=== PATIENT | male | born 1990 | race Caucasian/White ===

== ENCOUNTER 2019-09-28 11:56 | Emergency (ER) | payer MEDICAID, SELFPAY ==
[2019-09-28 11:57] VITALS: BP 120/71; PULSE 97; RESP 16; TEMP 36.8; O2SAT 100; BMI 24.3
[2019-09-28] MEDS: 0.9% Normal Saline 1,000 ML 125 ML IV (12:28)
[2019-09-28] MEDS: Ondansetron 4 MG/2 ML Vial IV ×3 (12:29→19:22)
[2019-09-28 12:36] LABS: Absolute Lymphocyte Count 3.56 X10^3/uL (0.83-4.51); Absolute Neutrophil Count 3.5 X10^3/uL (2.0-7.7); Basophil# 0.06 X10^3/uL; Basophil% 0.7 % (0-1); Eosinophil# 0.14 X10^3/uL; Eosinophils% 1.7 % (0-5); Hematocrit 45.9 % (40-54); Hemoglobin 15.7 g/dL (13.0-16.5); Lymphocyte # 3.56 X10^3/ul (4.0); Lymphocyte % 44.4 % (19-41); Mean Corp Hgb Conc 34.2 g/dL (32-36); Mean Corpuscular Hgb 30.4 pg (27.0-32.0); Mean Platelet Vol. 10.2 fl (6.2-12.0); Monocyte# 0.69 X10^3/uL; Monocyte% 8.6 % (0-10); NRBC Flagged by Analyzer 0 % (0-5); Neutrophil # 3.54 X10^3/uL (2.7-7.7); Neutrophil % 44.2 % (47-70); POSITIVE MORPHOLOGY YES; Platelet Count 364 K/mm3 (150-450); RBC Distribution Width CV 14.6 % (11.6-14.6); RBC Distribution Width SD 47.4 fl (35.1-43.9); Red Blood Count 5.16 M/mm3 (4.6-6.2)
[2019-09-28 12:38] LABS: Differential Indicated SCAN CRITERIA MET
[2019-09-28 12:58] LABS: AST(SGOT) 890 U/L (15-37); Alanine Aminotransfer ALT/SGPT 3083 U/L (16-61); Albumin, Serum 3.2 g/dL (3.2-5.0); Alkaline Phosphatase 323 U/L (45-117); Anion Gap 5 (5-15); BUN 5 mg/dL (7-18); Calcium,Total 9.1 mg/dL (8.5-10.1); Chloride 103 mmol/L (98-107); Creatinine, Serum 0.72 mg/dL (0.70-1.30); EST Glomerular Filtration Rate 135 mL/min (>60); Est Glom Filt Rate - Afr Amer 164 mL/min (>60); Estimated Creatinine Clearance 153.49 ml/min; Globulin 4.1 g/dL (2.2-4.2); Glucose 92 mg/dL (74-106); Lipase 193 U/L (73-393); Potassium 3.7 mmol/L (3.5-5.1); Protein, Total 7.3 g/dL (6.4-8.2); Sodium Level 140 mmol/L (136-145)
[2019-09-28 13:18] LABS: Color, Urine Amber (Yellow); Glucose, Dipstick Normal (Normal); Ketone-Dipstick 5 mg/dl (Negative); Leukocyte Esterase-Dipstick 25 /ul (Negative); Nitrite-Dipstick Negative (Negative); Occult Blood-Urine 10 /ul (Negative); Protein-Dipstick 15 mg/dl (Negative); Urine Clarity Sl. Cloudy (Clear); Urine Urobilinogen 8 mg/dl (Normal)
[2019-09-28 13:20] LABS: Urine Bilirubin Dipstick 6 mg/dL (Negative)
[2019-09-28 13:27] LABS: Bacteria 1+ /hpf (None Seen); Mucous, Urine 1+ /hpf (<or=2+); Red Blood Cells-Urine 0-5 SEEN /hpf (0-5); Squamous Epithelial Cells - UA 0-5 SEEN /hpf (0-5); White Blood Cells 0-5 SEEN /hpf (0-5)
[2019-09-28 13:33] LABS: Reactive Lymphocyte 1+
[2019-09-28 14:00] VITALS: BP 128/84; PULSE 88; RESP 22; O2SAT 100
[2019-09-28] MEDS: DiphenhydrAMINE 50 MG/ML Syringe 25 MG IV (14:08)
[2019-09-28] MEDS: LORazepam 2 MG/ML Syringe 1 MG IV (14:08)
[2019-09-28 14:19] LABS: Prothrombin Time (Protime)PT. 12.6 SECONDS (11.7-14.9)
--- NOTE | 2019-09-28 14:57 | NURSING ---
[facility] IS FULL, BUT THEY ARE KEEPING LINES OF COMMUNICATION OPEN
--- NOTE | 2019-09-28 14:58 | NURSING ---
[facility] HAS FULL CENSUS, LONG WAIT FOR BED. DR OLVERA, MEDICINE, HAS CALLED. DR ROGEL CALLED BACK
--- NOTE | 2019-09-28 15:09 | NURSING ---
ACCEPTED AT [facility] BY DR ROGEL
--- NOTE | 2019-09-28 15:14 | ED.VISSUMM ---
- ER Visit Summary Date of Service: 09/28/19 Chief Complaint: [Jaundice and concern for hepatitis] History of Present Illness: The patient is a 29 M [resents to the emergency department with 4 to 5-day history of vomiting and diarrhea. Patient complains of some mild abdominal discomfort. Patient states that he has used IV drugs and has been using methamphetamines and opiates but discontinued using for 5 days ago. Patient noticed discoloration of the skin at that time as well. Patient otherwise has no medical history. He has complaints and pale stools. Patient has history of anxiety. No prior surgical history.] Physical Examination: [HEENT-PERRLA, EOMI. Cranial nerves II through XII grossly intact. TMs clear. Mucous membranes moist. No adenopathy. Patient has scleral icterus noted Cardiovascular-regular rate and rhythm without murmur or ectopy Lungs-clear to auscultation, chest wall stable without crepitus or subcu emphysema Abdomen-normoactive bowel sounds, soft. Patient has some mild upper abdomen discomfort on exam. Liver feels slightly enlarged. There is no rebound, rigidity, or peritoneal signs. Extremities-intact ?4, normal range of motion, normal pulses, atraumatic] Test Results: [CBC with differential white count of 8.0, hemoglobin 15.7, hematocrit 46, platelets 364. Chemistries unremarkable. Total bilirubin was 9.7. Direct bilirubin was 7.5. Alk phos was 323, ALT 3083, AST was 890, lipase 193, INR 1.0. Ordered and pending. Urinalysis was unremarkable for infection however he was spilling bilirubin] Emergency Department Course and Treatment: [ Established and was given IV fluids. Patient was given Zofran as well as Ativan for his anxiety. Patient was given Benadryl for itching.] Treatment Plan: [Case discussed with hospitalist and she recommended transfer to a tertiary care center as we do not have GI or hepatology available. I discussed with patient that initially he wanted to go to [facility] in [place] however I was told they do not have beds and that their ER is also full. Patient in agreement with transfer to [facility]. I spoke with Dr. Brown at the [facility] who is a vocational rehabilitation counselor and accepted transfer patient.] Disposition: [Transfer to [facility]] Impression: [Acute hepatitis] This note was generated with howsimple dictation software. It may contain incorrect words, spelling, and punctuation that were not noted in review of the chart prior to signing ED Disposition - Plan for ED Patient: Referrals: Miguel Umaña DO [Primary Care Provider] -
[2019-09-28 16:30] LABS: Amphetamine Urine VISTA POSITIVE (<1000 ng/mL); Barbiturate Urine VISTA NEGATIVE (< 200 ng/mL); Benzodiazepine Urine VISTA NEGATIVE (< 200 ng/mL); Cocaine Urine VISTA NEGATIVE (< 300 ng/mL); Ecstacy Urine VISTA NEGATIVE (< 500 ng/mL); Methadone Urine VISTA NEGATIVE (< 300 ng/mL); PCP Urine VISTA NEGATIVE (< 25 ng/mL); THC Urine VISTA POSITIVE (< 50 ng/mL); Vista UDS pH Range 6
--- NOTE | 2019-09-28 17:55 | NURSING ---
[facility] MAIN G100 BED 19 NURSE TO NURSE [phone]
[2019-09-28 18:00] VITALS: BP 125/80; PULSE 77; RESP 16; O2SAT 98
--- NOTE | 2019-09-28 19:24 | ED.RN ---
ATTEMPTED TO SECURE TRANSPORT FROM SEVERAL TRANSPORT COMPANIES, MANY HAVE DECLINED TO TRANSPORT DUE TO NO INSURANCE. CALLED [facility] CONTRACTED TRANSPORT COMPANY, [facility], WHO ALSO DECLINED DUE TO NO INSURANCE.
--- NOTE | 2019-09-28 19:45 | CM.ED ---
SOCIAL WORK INFORMANT: HIDE DROPPER, NURSING REASON FOR REFERRAL: SELF-PAY/TRANSPORTATION ISSUES PATIENT TO BE TRANSFERRED TO [facility]. PATIENT DOES NOT HAVE INSURANCE, STAFF HAVING ISSUES ARRANGING TRANSPORTATION. CHARGE NURSE DISCUSSED CASE WITH ED DIRECTOR. THIS WORKER MET WITH PATIENT IN ROOM. INTRODUCED ROLE AND REASON FOR REFERRAL. PATIENT GIVEN INFORMATION ON MEDICAID AND DISCUSSED ELIGIBILITY. PATIENT'S MOTHER TO ROOM. ALL QUESTIONS ANSWERED. ENCOURAGED FOLLOW UP WITH [place] [employer]/MEDICAID TOMORROW MORNING. PLAN: TRANSFER TO [facility], TRANSPORTATION BEING ARRANGED. STONEY FLORES, NEW MEDIA STRATEGIST.
--- NOTE | 2019-09-28 20:14 | ED.RN ---
patient has been denied by all normal local transport companies at this time due to having no insurance. Spoke with social work and made aware of situation. Spoke wi registered nurse hh case manager who was approved transport via squad if they will allow be agreeable to accept further payment from [facility]. Spoke to Dr. Alfaro made aware. She will allow patient to be transported via private care if need by. Spoke with Patient updated about the plan. Patient aggress to a private car transport. Would like us to speak to about this prior to plan at this time
--- NOTE | 2019-09-28 20:28 | ED.RN ---
patient agrees to private car transport
[2019-09-28] MEDS: LORazepam 0.5 MG Tablet PO (20:36)
[2019-09-28 20:44] VITALS: BP 125/80; PULSE 72; RESP 18; TEMP 37; O2SAT 98
[2019-09-29 04:07] LABS: HEPATITIS B SURFACE AG Negative (Negative); Hepatitis B Core AB IgM Negative (Negative)
[2019-09-29 12:52] LABS: Hep C Antibodies 0.1 s/co ratio (0.0-0.9)
[2019-09-29 12:55] LABS: Hepatitis A IgM Antibody Positive (Negative)
== END 2019-09-28 20:45 | disposition short-term general hospital (02) ==
LOC: ED 12:35
PROVIDERS: Emergency Provider Emergency Medicine; Family Provider Preventive Medicine Occupational Medicine; PCP Preventive Medicine Occupational Medicine
DX: B17.9 Acute viral hepatitis, unspecified (principal); R10.9 Unspecified abdominal pain; R11.2 Nausea with vomiting, unspecified; R19.7 Diarrhea, unspecified; Z72.0 Tobacco use
CPT/HCPCS: 80048; 80074; 80076; 80307; 81001; 83690; 85025; 85610; 96361; 96374; 96375; 96376; 99285; J7030; A4216; J2405

== ENCOUNTER 2020-04-16 16:17 | Emergency (ER) | payer MEDICAID, SELFPAY ==
[2020-04-16 16:18] VITALS: BP 156/107; PULSE 101; RESP 24; TEMP 36.7; O2SAT 100; BMI 25.2
--- NOTE | 2020-04-16 16:22 | ED.VIS.GEN ---
History of Present Illness Chief Complaint: Overdose Informant: Patient Onset: Today Context: Sudden Onset Quality: unconscious Current Severity: - - resolved Maximum Severity: Severe Worsened by: after overdosing IV drugs Relieved by: Narcan 4mg inhaled by EMS Associated Symptoms: denies. feels back to normal now. Narrative: Patient states he apparently accidentally overdosed. States he knowingly injected IV methamphetamine and fentanyl into his left antecubital fossa, someone called EMS and they gave him 2 A of Narcan up the nose, and he woke up. Patient feels good now. Past Medical History - Allergies and Home Meds Allergies/Adverse Reactions: Allergies No Known Allergies Allergy (Verified 04/16/20 16:23) Primary Care Physician: [facility] [STAFF PHYSICIAN] - As Needed (for addiction problems) Past Medical History: None Smoking Status: Current every day smoker Drugs: Heroin - And fentanyl and methamphetamine Review of Systems General: Denies: Chills, Fever, Sweats Eyes: Denies: Visual changes - bilaterally, Diplopia ENT: Denies: Rhinorrhea, Sore throat Cardiovascular: Denies: Chest pain, Palpitations Respiratory: Denies: Dyspnea, Cough, Dyspnea on exertion Gastrointestinal: Denies: Abdominal pain, Nausea, Vomiting, Diarrhea, Melena, Hematochezia Genitourinary: Denies: Dysuria, Hematuria, Frequency Musculoskeletal: Denies: Back pain, Extremity Pain Skin: Denies: Rash, Wounds Neurological: Denies: Headache, Weakness, Numbness Psych: Denies: Suicidal thoughts, Suicidal ideations Physical Exam Inital Vital Signs reviewed: Yes General: Well nourished, Well developed, No Acute Distress Head: Normocephalic, Atraumatic Eyes: Perrl, EOMI ENT: Moist mucous membranes, No rhinorrhea Neck: Supple, Nontender Cardiovascular: Regular rate, Regular rhythm, No murmurs, Tachycardia - Borderline Respiratory: No distress, CTA bilaterally, Chest nontender Abdomen: Soft, Nontender, Nondistended, Normal bowel sounds Back: Nontender, Normal Inspection Extremities: Nontender, No edema Skin: Normal color, No rash, - - Left antecubital fossa track buckner do not appear to be infected, no palpable cords Neurological: Alert, Oriented x3, Cranial nerves II-XII grossly intact, Normal Strength, Normal Sensation Psychological: Normal affect, Normal Mood Diagnostic/Tx/Re-eval - Rhythm Strip Rhythm Strip: Sinus Tach Rate: 105 Ectopy: None - Medical Decision Making Patient was observed for a little over an hour. He developed no symptoms or lethargy, and felt fine. He was discharged with a family member and given resources for addiction locally. Tachycardia resolved, the rest of his vital signs remained stable. ED Disposition - Plan for ED Patient: Disposition: Home or Assisted Living Diagnosis: Accidental fentanyl overdose, Methamphetamine abuse Instructions: ED AMPHETAMINE ABUSE, ED Abuse Narcotic Referrals: [facility] [STAFF PHYSICIAN] - As Needed (for addiction problems)
[2020-04-16 17:39] VITALS: BP 143/82; PULSE 89; RESP 18; O2SAT 100
== END 2020-04-16 17:40 | disposition home or self-care (01) ==
PROVIDERS: Emergency Provider Emergency Medicine; PCP Preventive Medicine Occupational Medicine
DX: T40.4X1A Poisoning by other synthetic narcotics, accidental (unintentional), initial encounter (principal); F15.10 Other stimulant abuse, uncomplicated; Y92.9 Unspecified place or not applicable; F17.200 Nicotine dependence, unspecified, uncomplicated
CPT/HCPCS: 99285; J7030; A4216

== ENCOUNTER 2021-12-19 08:40 | Outpatient (CLI) | payer MEDICAID, SELFPAY ==
[2021-12-19 12:11] LABS: Absolute Lymphocyte Count 2.72 X10^3/uL (0.83-4.51); Absolute Neutrophil Count 3.1 X10^3/uL (2.0-7.7); Basophil# 0.04 X10^3/uL; Basophil% 0.6 % (0-1); Eosinophil# 0.22 X10^3/uL; Eosinophils% 3.2 % (0-5); Hematocrit 43.6 % (40-54); Hemoglobin 14.5 g/dL (13.0-16.5); Lymphocyte # 2.72 X10^3/ul (0.83-4.51); Lymphocyte % 39.8 % (19-41); Mean Corp Hgb Conc 33.3 g/dL (32-36); Mean Corpuscular Hgb 30.7 pg (27.0-32.0); Mean Corpuscular Volume 92.4 fL (80-94); Mean Platelet Vol. 9.3 fl (6.2-12.0); Monocyte# 0.72 X10^3/uL; Monocyte% 10.5 % (0-10); NRBC Flagged by Analyzer 0 % (0-5); Neutrophil # 3.13 X10^3/uL (2.7-7.7); Neutrophil % 45.8 % (47-70); Platelet Count 396 K/mm3 (150-450); RBC Distribution Width CV 13.3 % (11.6-14.6); RBC Distribution Width SD 45.2 fl (35.1-43.9); Red Blood Count 4.72 M/mm3 (4.6-6.2); White Blood Count 6.8 K/mm3 (4.4-11.0)
[2021-12-19 12:43] LABS: ALB/GLOB Ratio 1.3 RATIO (0.9-2.4); AST(SGOT) 43 U/L (15-37); Alanine Aminotransfer ALT/SGPT 67 U/L (16-61); Albumin, Serum 4.2 g/dL (3.2-5.0); Alkaline Phosphatase 63 U/L (45-117); Anion Gap 5 (5-15); BUN 22 mg/dL (7-18); BUN/Creat Ratio 25.5 RATIO (10-20); Chloride 105 mmol/L (98-107); Cholesterol 144 mg/dL (200); Creatinine, Serum 0.86 mg/dL (0.70-1.30); EST Glomerular Filtration Rate 108 mL/min (>60); Est Glom Filt Rate - Afr Amer 131 mL/min (>60); Free T3 3.4 pg/mL (2.18-3.98); Globulin 3.3 g/dL (2.2-4.2); Glucose 75 mg/dL (74-106); High Density Lipoprotein 32 mg/dL; Magnesium 2.2 mg/dL (1.6-2.6); Potassium 4.2 mmol/L (3.5-5.1); Protein, Total 7.5 g/dL (6.4-8.2); Sodium Level 137 mmol/L (136-145); T4 Free Direct 1.11 ng/dL (0.76-1.46); Thyroid Stim Hormone (TSH) 0.76 uIU/mL (0.358-3.74); Triglycerides 63 mg/dL; Very Low Density Lipoprotein 13 mg/dL (5-40)
[2021-12-19 13:01] LABS: Hepatitis C Antibody Non-Reactive (Nonreactive); Vitamin B12 544 pg/mL (211-911); Vitamin D,25 Hydroxy 18.3 ng/mL
== END 2021-12-19 23:59 | disposition home or self-care (01) ==
LOC: BIMLAB 08:41
PROVIDERS: PCP Internal Medicine; Referring Provider Internal Medicine; Visit Provider Internal Medicine
DX: F19.10 Other psychoactive substance abuse, uncomplicated (principal); F10.10 Alcohol abuse, uncomplicated
CPT/HCPCS: 36415; 80053; 80061; 82306; 82607; 83735; 84439; 84443; 84481; 85025; 86803

== ENCOUNTER 2021-12-25 08:16 | Outpatient (CLI) | payer MEDICAID, SELFPAY ==
--- NOTE | 2021-12-25 08:20 | US_ITS ---
STUDY: ABDOMINAL ULTRASOUND - RIGHT UPPER QUADRANT REASON FOR VISIT: Male, 31 years old Elevated LFTs TECHNIQUE: Ultrasound evaluation of the right upper quadrant was performed with real-time and static whitehead-scale imaging. TECHNICAL QUALITY: Limited. COMPARISON: None. FINDINGS: Liver: The liver measures 15.3 cm. There is normal echogenicity of the liver. The bile ducts are within normal limits. There is hepatic color flow. The direction of portal flow is hepatopetal. There is no demonstrated mass lesion. Gallbladder: Normal distended gallbladder. The gallbladder wall measures 2.0 mm. There is a negative sonographic Aly''s sign. There is no pericholecystic fluid. There are no gallstones. Common Bile Duct (C.B.D.): The common bile duct measures 3.0 mm. Pancreas: There is nonvisualization of the pancreas due to overlying bowel gas. Right Kidney: Normal size of the right kidney. The right kidney measures 10.9 cm x 5.9 cm x 5.9 cm. Normal renal cortex. The right cortex measures 1.7 cm. There is no demonstrated renal mass or cyst. There is no right hydronephrosis. US/Liver IMPRESSION: Normal right upper quadrant ultrasound examination. Electronically Signed: Jesus Gamez MD at 9:54 EDT ,
== END 2021-12-25 23:59 | disposition home or self-care (01) ==
LOC: US 08:18
PROVIDERS: PCP Internal Medicine; Referring Provider Internal Medicine; Visit Provider Internal Medicine
DX: R79.89 Other specified abnormal findings of blood chemistry (principal)
CPT/HCPCS: 76705

== ENCOUNTER 2023-05-20 07:25 | Emergency (ER) | payer BC, MEDICAID, SELFPAY ==
[2023-05-20 07:26] VITALS: BP 168/90; PULSE 85; RESP 18; TEMP 35.9; O2SAT 100; BMI 25.9
--- NOTE | 2023-05-20 07:32 | RAD_ITS ---
INDICATION: reduction -- index, dorsal dislocation of PIP, s/p reduction EXAMINATION/TECHNIQUE: X-RAY - RIGHT HAND XR Fingers Min 2 Views 3 VIEWS COMPARISON: No relevant prior comparison study available FINDINGS: SOFT TISSUES: There is soft tissue swelling adjacent to the second proximal interphalangeal joint. No radiopaque foreign body. BONES/JOINTS: No acute fracture or subluxation.. Normal alignment. Preservation of the joint space.. No sclerotic or destructive changes observed. RAD/Finger(s) Min 2 Views IMPRESSION: Within normal limits in alignment. Soft tissue swelling. Electronically Signed: Bisi Bo MD at 8:09 EDT ,
--- NOTE | 2023-05-20 07:33 | EDS_ITS ---
HPI History of Present Illness Chief Complaint: Upper Extremity Injury Informant: patient Narrative Narrative: [id number] male presents right index finger injury from mechanical fall this morning. Stumbled hitting his finger on the ground. Is deformed. Pain worse with movement. No history of similar. No medications taken. Prior similar symptoms: No PFSH PFSH Medical History Alcohol abuse Anxiety and depression Drug abuse Hepatitis A History of arm fracture History of fracture of nasal bone History of gastric ulcer Home Medications bupropion HCl 150 mg tablet,12 hr sustained-release (Wellbutrin SR) 150 mg PO DAILY #90 ea 12/18/21 [Rx Last Taken Unknown] naltrexone microspheres 380 mg intramuscular suspension,extended release (Vivitrol) 380 mg IM QMONTH 12/18/21 [History Last Taken Unknown] Allergy/AdvReac Type Severity Reaction Status Date / Time No Known Allergies Allergy Verified 05/20/23 07:47 Family History Other Alcoholism Anxiety Depression Mental disorder Surgical History History of wisdom tooth extraction Social History adopted: Yes Smoking Status: Current every day smoker tobacco type: cigarettes alcohol intake: former substance use type: former substance user what type of physical activity do you participate in: walking frequency: 3-4 times per week ROS ROS ED Constitutional Constitutional ED: Denies chills, fever(s) or sweats Eyes Eyes: Denies change in vision ENT ENT ED: Denies dysphagia or sore throat Cardiovascular Cardiovascular: Denies chest pain, leg edema, palpitations or racing heartbeat Respiratory/Chest Respiratory/Chest: Denies cough, dyspnea or dyspnea on exertion Gastrointestinal Gastrointestinal: Denies abdominal pain, diarrhea, nausea or vomiting Genitourinary Genitourinary ED: Denies dysuria, hematuria or urinary frequency Musculoskeletal Musculoskeletal: Reports extremity pain; Denies back pain or neck pain Integumentary Denies rash or wounds Neurologic Neurologic: Denies headache(s), paresthesias or weakness EXAM Physical Exam Const Vital Signs: 05/20/23 07:26 Temperature 96.7 F L Temperature Source Temporal Pulse Rate 85 Respiratory Rate 18 Blood Pressure 168/90 H Blood Pressure Mean 116 Pulse Ox 100 Oxygen Delivery Method Room Air Positive well nourished and well developed General Appearance ED: well developed and NAD HEENT Reports moist mucous membranes normocephalic and atraumatic Eyes PERRL, EOMs intact bilaterally and conjunctivae normal General Eye ED: Yes normal appearance of both eyes Neck no lymphadenopathy and supple General: Negative for tenderness Chest Wall Chest: Negative for tenderness Resp normal respiratory effort and normal air movement Effort and Inspection: symmetric chest movement; Negative for respiratory distress Cardio regular rate, regular rhythm and no murmurs Peripheral Pulses: pulses 2+ throughout GI normal to inspection, nondistended, normoactive bowel sounds and non-tender Palpation: Negative for guarding or rebound tenderness present Back/Spine no CVA tenderness and no thoracic nor lumbar tenderness Extremity Extremity Narrative: Right upper extremity no elbow or wrist tenderness. No hand tenderness. Index finger noted deformity valgus at the PIP unable to bend at the PIP, dorsal shift. Skin intact. Cap refill less than 3 seconds. General Extremety ED: Yes tenderness; Negative for edema General Extremity: Negative for edema Neuro oriented x3 and no sensory deficits noted Sensorium / Orientation: awake and alert Skin no rashes or lesions noted and no wounds MDM MDM MDM Narrative Medical decision making narrative: Interventions / MDM: Differential diagnosis: Finger dislocation Diagnosis considered but do not suspect: Fracture however x-ray negative. My EKG interpretation: N/A Imaging independently reviewed and interpreted by myself: Right index 3 views: No fracture noted. External documents reviewed: N/A Test considered but not ordered:N/A ED course: Patient clinical dorsal dislocation of the PIP. This was reduced bedside. Modified splint prior to x-ray. Motrin ordered for symptom control. 0730: Procedure note: Verbal consent. Patient sitting against the bed, stabilization at the proximal phalanx index finger, gentle traction distal finger with relocation. There is no swelling. Tongue blade with stick used for dorsal splint with tape for stabilization prior to x-ray. Finger x-ray ordered. Patient tolerated procedure well. No fracture on x-ray. He is placed in AlumaFoam splint, varun tape to the middle finger. He will continue Motrin. Outpatient follow-up with orthopedic given. Re-evaluation: stable Disposition discussed with patient/family/significant other: Patient Case discussed with consulting clinician: N/A This note was generated with Agent Ace dictation software. It may contain incorrect words, spelling, and punctuation that were not noted in checking the note before signing. Discharge Plan Triage Chief Complaint: Upper Extremity Injury ED Provider: Chencho Hanna Dx/Rx/DC Orders Clinical Impression: Finger pain, right, Dislocation closed, finger Instructions: ED Finger Dislocation Prescriptions: No Action Vivitrol 380 mg suspension,extended rel recon 380 mg IM QMONTH bupropion HCl [Wellbutrin SR] 150 mg tablet sustained-release 12 hr 150 mg PO DAILY Qty: 90 1RF Stand Alone Forms: ED Work / School Excuse Primary Care Provider: Adriana Harrell Referrals: Adriana Harrell MD [Primary Care Provider] - Arnav Kiser DO [Med Staff - Active Staff] - 1 Week Activity Restrictions/Additional Instructions: Dislocated right index finger at the PIP joint. Status post reduction. Maintain finger splint. Use Motrin 600 mg every 6 hours as needed. Follow-up with orthopedics. Disposition Disposition: Home, Self Care Discharge Date/Time: 05/20/23 08:28
[2023-05-20] MEDS: Ibuprofen 600 MG Tablet PO (07:40)
[2023-05-20 08:25] VITALS: RESP 16
== END 2023-05-20 08:28 | disposition home or self-care (01) ==
PROVIDERS: Emergency Provider Emergency Medicine; PCP Internal Medicine; Visit Provider Emergency Medicine
DX: S63.250A Unspecified dislocation of right index finger, initial encounter (principal); W01.10XA Fall on same level from slipping, tripping and stumbling with subsequent striking against unspecified object, initial encounter; F17.210 Nicotine dependence, cigarettes, uncomplicated; Z79.899 Other long term (current) drug therapy
CPT/HCPCS: 26770; 73140; 99282

== ENCOUNTER 2024-01-20 04:39 | Inpatient (IN) | payer BC, SELFPAY ==
[2024-01-20] VITALS (8 sets, daily range): BP systolic 118–161; BP diastolic 72–114; PULSE 56–97; RESP 16–18; TEMP 36.1–36.8; O2SAT 95–99; BMI 24.6; BMI 23.8
--- NOTE | 2024-01-20 05:02 | EDS_ITS ---
HPI History of Present Illness Chief Complaint: Substance Abuse Informant: patient Narrative Narrative: Patient states for the past 8 months has been abusing alcohol, drinking daily, low proof of vodka about half of 1/2 gallon bottle per day on average. He states in the last 6 for 5 days he is trying to curb his use and drink less and in that amount of time has been feeling shaky, occasional nausea and vomiting, diarrhea especially when trying to drink alcohol or eat anything, his appetite has been less due to all of the GI symptoms, he has had no seizures or confusion, denies ingesting other substances, and he wants admitted to detox so he can get help getting off of alcohol forever. [facility] Medical History (Updated 01/20/24 @ 06:[address] Suleiman Boucher DO) Alcohol abuse Anxiety and depression Drug abuse Hepatitis A History of arm fracture History of fracture of nasal bone History of gastric ulcer Home Medications bupropion HCl 150 mg tablet,12 hr sustained-release (Wellbutrin SR) 150 mg PO DAILY #90 ea 12/18/21 [Rx Last Taken Unknown] naltrexone microspheres 380 mg intramuscular suspension,extended release (Vivitrol) 380 mg IM QMONTH 12/18/21 [History Last Taken Unknown] Allergy/AdvReac Type Severity Reaction Status Date / Time No Known Allergies Allergy Verified 05/20/23 07:47 Family History Other Alcoholism Anxiety Depression Mental disorder Surgical History History of wisdom tooth extraction Social History adopted: Yes Smoking Status: Current every day smoker tobacco type: e-cigarettes alcohol intake: current alcohol intake frequency: 3 or more drinks per day Alcohol type: hard liquor substance use type: former substance user what type of physical activity do you participate in: walking frequency: 3-4 times per week ROS ROS ED Constitutional Constitutional ED: Reports anorexia and fatigue; Denies chills or fever(s) Eyes Eyes: Denies change in vision or diplopia ENT ENT ED: Denies rhinorrhea or sore throat Cardiovascular Cardiovascular: Denies chest pain or palpitations Respiratory/Chest Respiratory/Chest: Denies cough or dyspnea Gastrointestinal Gastrointestinal: Reports abdominal pain, diarrhea, nausea and vomiting; Denies hematemesis, hematochezia or melena Genitourinary Genitourinary ED: Denies dysuria or hematuria Musculoskeletal Musculoskeletal: Denies back pain or neck pain Integumentary Denies abscess or rash Neurologic Neurologic: Reports tremor(s); Denies headache(s), paresthesias or weakness Psychiatric Psychiatric: Reports anxiety; Denies suicidal ideation or suicidal thoughts EXAM Physical Exam Const Vital Signs: 01/20/24 04:42 01/20/24 06:13 01/20/24 05:41 Temperature 98.0 F 98.2 F Temperature Source Oral Pulse Rate 81 97 Respiratory Rate 18 16 Blood Pressure 161/114 H 136/86 H 136/86 H Blood Pressure Mean 129 102 102 Pulse Ox 97 98 Oxygen Delivery Method Room Air Positive well nourished and well developed General Appearance ED: well developed and NAD HEENT Reports moist mucous membranes normocephalic and atraumatic Eyes PERRL and EOMs intact bilaterally Neck full ROM and supple Resp normal respiratory effort and clear to auscultation bilaterally Cardio regular rate, regular rhythm and no murmurs GI non-tender and non-distended Auscultation: normoactive bowel sounds Palpation: soft Back/Spine no CVA tenderness General Back: other FROM Extremity normal to inspection General Extremety ED: Negative for edema, pulses abnormal or tenderness General Extremity: Negative for edema or pulses abnormal Neuro oriented x3, CN's II-XII intact bilaterally and no sensory deficits noted Sensorium / Orientation: awake and alert Motor Exam: strength 5/5 throughout Psych thought process normal Psych Narrative: Seems intoxicated. Very emotional. Mood & Affect: anxious and tearful Skin no rashes or lesions noted and no wounds MDM MDM MDM Narrative Medical decision making narrative: Patient has symptoms of alcohol withdrawal, but no seizure activity, confusion, or anything consistent with delirium tremens. His liver enzymes and PT/INR actually within normal limits. He is hypertensive but also very anxious. He was given Ativan for symptoms while he performed the workup. His potassium is low at 3.1 which we started replacing. Toxicology is noted, his alcohol is 385 right now. Either he has a viral etiology of his vomiting and diarrhea and he is not in alcohol withdrawal, or he has been in alcohol withdrawal for the last several days and he drank so much this morning that he currently is just very high. He wants to be admitted for detox. Lab Data Attestation: I reviewed the patient's lab results. Labs: Laboratory Results - last 24 hr 01/20/24 01/20/24 05:04 05:20 WBC 7.3 RBC 5.15 Hgb 16.2 Hct 46.9 MCV 91.1 MCH 31.5 MCHC 34.5 RDW Std Deviation 42.6 RDW Coeff of [place] 12.7 Plt Count 323 MPV 8.5 Immature Gran % (Auto) 0.300 Neut % (Auto) 53.3 Lymph % (Auto) 35.7 [place] % (Auto) 9.6 Eos % (Auto) 0.4 Baso % (Auto) 0.7 Absolute Neuts (auto) 3.9 Absolute Lymphs (auto) 2.61 Nucleated RBC % 0 PT 12.0 INR 0.9 Sodium 139 Potassium 3.1 L Chloride 103 Carbon Dioxide 26.0 Anion Gap 10 BUN 11 Creatinine 0.68 L Estim Creat Clear Calc 155.07 Est GFR (MDRD) Af Amer 169 Est GFR (MDRD) Non-Af 140 BUN/Creatinine Ratio 16.1 Glucose 118 H Calcium 9.3 Total Bilirubin 0.60 AST 29 ALT 23 Alkaline Phosphatase 83 Total Protein 8.0 Albumin 4.4 Globulin 3.6 Albumin/Globulin Ratio 1.2 Urine Opiates Screen NEGATIVE Urine Methadone Screen NEGATIVE Ur Barbiturates Screen NEGATIVE Ur Phencyclidine Scrn NEGATIVE Ur Amphetamines Screen NEGATIVE MDMA (Ecstasy) Screen NEGATIVE U Benzodiazepines Scrn NEGATIVE Urine Cocaine Screen NEGATIVE U Cannabinoids Screen POSITIVE H Ur Drug Screen Comment Ethyl Alcohol 385.0 H* Management Discussion w/another healthcare provider: Hospitalist Discharge Plan Dx/Rx/DC Orders Clinical Impression: Alcohol dependence, Alcohol withdrawal, Acute hypokalemia, Alcohol intoxication in active alcoholic Disposition Disposition: Acute Care Hospital [facility]
[2024-01-20 05:13] LABS: Absolute Lymphocyte Count 2.61 X10^3/uL (0.83-4.51); Absolute Neutrophil Count 3.9 X10^3/uL (2.0-7.7); Basophil# 0.05 X10^3/uL; Basophil% 0.7 % (0-1); Eosinophil# 0.03 X10^3/uL; Eosinophils% 0.4 % (0-5); Hematocrit 46.9 % (40-54); Hemoglobin 16.2 g/dL (13.0-16.5); Lymphocyte # 2.61 X10^3/ul (0.83-4.51); Lymphocyte % 35.7 % (19-41); Mean Corp Hgb Conc 34.5 g/dL (32-36); Mean Corpuscular Hgb 31.5 pg (27.0-32.0); Mean Corpuscular Volume 91.1 fL (80-94); Mean Platelet Vol. 8.5 fl (6.2-12.0); Monocyte% 9.6 % (0-10); NRBC Flagged by Analyzer 0 % (0-5); Neutrophil % 53.3 % (47-70); Platelet Count 323 K/mm3 (150-450); RBC Distribution Width CV 12.7 % (11.6-14.6); RBC Distribution Width SD 42.6 fl (35.1-43.9); Red Blood Count 5.15 M/mm3 (4.6-6.2); White Blood Count 7.3 K/mm3 (4.4-11.0)
[2024-01-20 05:23] LABS: International Normalized Ratio 0.9
[2024-01-20 05:31] LABS: ALB/GLOB Ratio 1.2 RATIO (0.9-2.4); AST(SGOT) 29 U/L (15-37); Alanine Aminotransfer ALT/SGPT 23 U/L (16-61); Albumin, Serum 4.4 g/dL (3.2-5.0); Alkaline Phosphatase 83 U/L (45-117); Anion Gap 10 (5-15); BUN 11 mg/dL (7-18); BUN/Creat Ratio 16.1 RATIO (10-20); Calcium,Total 9.3 mg/dL (8.5-10.1); Chloride 103 mmol/L (98-107); Creatinine, Serum 0.68 mg/dL (0.70-1.30); EST Glomerular Filtration Rate 140 mL/min (>60); Est Glom Filt Rate - Afr Amer 169 mL/min (>60); Estimated Creatinine Clearance 155.07 ml/min; Globulin 3.6 g/dL (2.2-4.2); Glucose 118 mg/dL (74-106); Potassium 3.1 mmol/L (3.5-5.1); Sodium Level 139 mmol/L (136-145)
[2024-01-20] MEDS: LORazepam 2 MG/ML Syringe 1 MG IV (05:36)
[2024-01-20 05:45] LABS: Amphetamine Urine VISTA NEGATIVE (<1000 ng/mL); Barbiturate Urine VISTA NEGATIVE (< 200 ng/mL); Benzodiazepine Urine VISTA NEGATIVE (< 200 ng/mL); Cocaine Urine VISTA NEGATIVE (< 300 ng/mL); Ecstacy Urine VISTA NEGATIVE (< 500 ng/mL); Methadone Urine VISTA NEGATIVE (< 300 ng/mL); PCP Urine VISTA NEGATIVE (< 25 ng/mL); THC Urine VISTA POSITIVE (< 50 ng/mL); Vista UDS pH Range 6
--- NOTE | 2024-01-20 06:02 | PCM.HP.STD ---
[facility] - General General Date of Service: 01/20/24 Chief Complaint: Wants help with alcohol detox [facility] Narrative MARYURI TAVERA, is a 34 M with a past medical history of chronic alcohol abuse, history of opiate abuse with previous fentanyl overdose; on naltrexone IM monthly, history of hepatitis A, history of gastric ulcer and depression with anxiety; on bupropion who presents to [facility] ER complaining that he wants help with alcohol detox. Mr. Tavera reports he has been drinking heavily routinely ingesting 1/2 gallon of low proof vodka on average daily for the past 8 months. Then for the past 5 to 6 days he claims he has been trying to curb his alcohol use and drink less but then he became shaky with occasional nausea and vomiting. He also admits to diarrhea especially when trying to drink alcohol or eat anything. He states his appetite has been diminished due to all of his GI symptoms. He denies any seizure, bouts of confusion, other illicit drug use and he wants help with detox. In the ER he was noted to have a blood alcohol concentration of 385 mg/dL consistent with acute alcohol intoxication in the setting of chronic alcohol abuse complicated by hypokalemia of 3.1 mmol/L present on admission with nausea, vomiting and diarrhea due to suspected viral gastroenteritis in the setting of uncontrolled depression with anxiety and he was then admitted to the general medical floor for ongoing care for stay that is expected to extend beyond 2 midnights. [facility] Medical History (Updated 01/20/24 @ 06:[address] Suleiman Boucher DO) Alcohol abuse Anxiety and depression Drug abuse Hepatitis A History of arm fracture History of fracture of nasal bone History of gastric ulcer Home Medications bupropion HCl 150 mg tablet,12 hr sustained-release (Wellbutrin SR) 150 mg PO DAILY #90 ea 12/18/21 [Rx Last Taken Unknown] naltrexone microspheres 380 mg intramuscular suspension,extended release (Vivitrol) 380 mg IM QMONTH 12/18/21 [History Last Taken Unknown] Allergy/AdvReac Type Severity Reaction Status Date / Time No Known Allergies Allergy Verified 05/20/23 07:47 Family History Other Alcoholism Anxiety Depression Mental disorder Surgical History History of wisdom tooth extraction Social History adopted: Yes Smoking Status: Current every day smoker tobacco type: e-cigarettes alcohol intake: current alcohol intake frequency: 3 or more drinks per day Alcohol type: hard liquor substance use type: former substance user what type of physical activity do you participate in: walking frequency: 3-4 times per week ROS ROS Narrative Review of systems: General: Patient denies fever or chills but he admits to anorexia and fatigue. HENT: Denies headache, denies stuffy nose, denies sore throat EYES: Denies changes in vision or discharge from eyes. Resp: Denies cough, denies shortness of breath Cardiac: Denies chest pain, palpitations or heart racing. GI: Patient admits to nonbloody diarrhea with cramping abdominal pain along with nausea and bilious emesis as per HPI. He denies hematemesis, hematochezia or melena. : Denies changes in urination Extremity: Denies swelling Musculoskeletal: Feels somewhat generally weak and unwell but he denies arthralgias or myalgias. Neuro: Patient denies headache, paresthesias or focal neurologic weakness. Heme: Denies any bleeding or bruising Skin: Denies rashes Psychiatric: Patient admits to uncontrolled depression and anxiety made worse by alcoholism but he denies suicidal or homicidal ideation. Endocrine: No polyuria, polydipsia or polyphagia. The rest of the 14 point ROS was negative except for positives in HPI. Vital Signs Vital Signs Vital Signs: 01/20/24 04:42 Temperature 98.0 F Temperature Source Oral Pulse Rate 81 Respiratory Rate 18 Blood Pressure 161/114 H Blood Pressure Mean 129 Pulse Ox 97 Oxygen Delivery Method Room Air Weight Weight: 171 lb 15.369 oz Body Mass Index (BMI) 24.6 Physical Exam Const alert, oriented x3, no apparent distress and average body habitus General Appearance: cooperative HEENT normocephalic, head/scalp atraumatic, hearing grossly normal bilaterally and moist oral mucous membranes Eyes PERRL and EOMs intact bilaterally Neck no lymphadenopathy and supple Resp normal respiratory effort, no retractions, no use of accessory muscles and clear to auscultation bilaterally Cardio regular rate and regular rhythm GI normal to inspection, nondistended, normoactive bowel sounds, soft to palpation and non-distended GI Narrative: Mild generalized tenderness to palpation. Extremity normal to inspection and full ROM Skin Skin Narrative: Patient has no evidence of rash or abscess. Neuro oriented x3, CN's II-XII intact bilaterally, moves all extremities and no focal motor deficits Sensorium / Orientation: awake, alert, oriented to person, oriented to place and oriented to time Speech: speech normal Psych Mood & Affect: depressed and anxious Results Medical Records Data Attestation: I reviewed the patient's medical records Lab / Micro Data Attestation: I reviewed the patient's lab results. 01/20/24 05:04 01/20/24 05:04 Labs: Laboratory Results - last 24 hr 01/20/24 05:04: WBC 7.3, RBC 5.15, Hgb 16.2, Hct 46.9, MCV 91.1, MCH 31.5, MCHC 34.5, RDW Std Deviation 42.6, RDW Coeff of Puma 12.7, Plt Count 323, MPV 8.5, Immature Gran % (Auto) 0.300, Neut % (Auto) 53.3, Lymph % (Auto) 35.7, Morrison % (Auto) 9.6, Eos % (Auto) 0.4, Baso % (Auto) 0.7, Absolute Neuts (auto) 3.9, Absolute Lymphs (auto) 2.61, Nucleated RBC % 0, PT 12.0, INR 0.9, Sodium 139, Potassium 3.1 L, Chloride 103, Carbon Dioxide 26.0, Anion Gap 10, BUN 11, Creatinine 0.68 L, Estim Creat Clear Calc 155.07, Est GFR (MDRD) Af Amer 169, Est GFR (MDRD) Non-Af 140, BUN/Creatinine Ratio 16.1, Glucose 118 H, Calcium 9.3, Total Bilirubin 0.60, AST 29, ALT 23, Alkaline Phosphatase 83, Total Protein 8.0, Albumin 4.4, Globulin 3.6, Albumin/Globulin Ratio 1.2, Ethyl Alcohol 385.0 H* 01/20/24 05:20: Urine Opiates Screen NEGATIVE, Urine Methadone Screen NEGATIVE, Ur Barbiturates Screen NEGATIVE, Ur Phencyclidine Scrn NEGATIVE, Ur Amphetamines Screen NEGATIVE, MDMA (Ecstasy) Screen NEGATIVE, U Benzodiazepines Scrn NEGATIVE, Urine Cocaine Screen NEGATIVE, U Cannabinoids Screen POSITIVE H, Ur Drug Screen Comment Assessment & Plan Assessment/Plan (1) Alcohol intoxication in active alcoholic: QUALIFIERS: Complication of substance-induced condition: uncomplicated Qualified Code(s): F10.220 - Alcohol dependence with intoxication, uncomplicated (2) Alcohol dependence: QUALIFIERS: Complication of substance-induced condition: uncomplicated Substance use status: with intoxication Qualified Code(s): F10.220 - Alcohol dependence with intoxication, uncomplicated (3) Viral gastroenteritis: (4) Acute hypokalemia: (5) Anxiety and depression: PLAN: Plan 1. Acute alcohol intoxication in the setting of chronic alcohol abuse with impending alcohol withdrawal - Admit to general medical floor for treatment under alcohol withdrawal protocol primarily consisting of phenobarbital taper. Alcohol cessation will be strongly encouraged. 2. Suspected viral gastroenteritis with nausea, bilious emesis and nonbloody diarrhea complicating #1 in the setting of a known history of gastric ulcer - Check CT scan of abdomen pelvis to define anatomy. Check stool studies and placed on enteric precautions. Give Protonix 40 mg IV daily. Vigorously volume resuscitate and give IV Zofran as needed for breakthrough nausea and vomiting. 3. Hypokalemia of 3.1 mmol/L present on admission likely due to #2 - Give supplemental potassium chloride and recheck BMP in a.m. to ensure improvement. 4. Urine drug screen positive for cannabis this admission compounding #1 - #3 - Cannabis cessation will be strongly encouraged. 5. History of opiate abuse with previous fentanyl overdose; on naltrexone IM monthly - Noted. 6. History of hepatitis A - Noted. 7. Uncontrolled depression with anxiety - Resume home regimen when and if patient is able to maintain sobriety as bupropion is contraindicated in cases of acute alcohol intoxication. 8. DVT prophylaxis - Lovenox 40 mg SQ daily. Total time: Approximately 75 minutes. Charges/Coding Visit Charges Inpatient E&M: 51333 Init Hosp L3
[2024-01-20] MEDS: Potassium Chloride Oral Tablet 20 MEQ PO (06:12)
--- NOTE | 2024-01-20 06:29 | CT_ITS ---
INDICATION: Nausea, vomiting and diarrhea. Suspect VGE. EXAMINATION: CT ABDOMEN AND PELVIS WITHOUT CONTRAST - CT Abdomen And Pelvis W/O Contrast Injection TECHNIQUE: Helically acquired images were obtained of the abdomen and pelvis without oral or IV contrast. A radiation dose optimization technique was used for this scan. IV Contrast dosage and agent: None. Oral contrast: None. RADIATION DOSAGE (If Supplied By Facility): CTDIvol = ( 6.12 ) mGy, DLP = ( 324.21 ) mGycm COMPARISON: No relevant prior comparison study available FINDINGS: LOWER CHEST: Lung bases are clear. No cardiomegaly or pericardial effusion. LIVER: Homogeneous. No focal mass. GALLBLADDER AND BILIARY TREE: No calcified gallstones. No gallbladder distension or wall edema. No intra- or extrahepatic biliary ductal dilation. PANCREAS: No focal cystic or solid mass. SPLEEN: Normal size without focal cystic or solid mass. ADRENAL GLANDS: No nodules. KIDNEYS AND URETERS: Normal renal size and position. No hydronephrosis. PERITONEUM: No ascites or free air. No other fluid collection. BOWEL: No evidence of acute appendicitis. No stomach or bowel distension. There is mild thickening of the lay of the ascending, transverse and descending colon suggesting colitis. LYMPH NODES: No enlarged mesenteric or retroperitoneal lymph nodes. VESSELS: Aorta is non-dilated. URINARY BLADDER: Unremarkable. REPRODUCTIVE ORGANS: No pelvic masses. ABDOMINAL WALL: No discrete abdominal or pelvic wall hernia. BONES: No lytic or blastic abnormality. CT/Abdomen/Pelvis without Cont IMPRESSION: There is mild thickening of the lay of the ascending, transverse and descending colon suggesting colitis. Electronically Signed: Whitney Michael MD at 8:13 EDT ,
[2024-01-20] MEDS: Enoxaparin 40 MG/0.4 ML Syringe SC (08:49)
[2024-01-20] MEDS: Pantoprazole Sodium 40 MG in 0.9% Normal Saline (100mL MB+) 100 ML 330 MG IV (08:50)
[2024-01-20] MEDS: Phenobarbital 32.4 MG Tablet 64.8 MG PO ×5 (08:50→23:04)
[2024-01-20] MEDS: Thiamine Hydrochloride 100 MG Tablet PO (08:52)
[2024-01-20] MEDS: Folic Acid 1 MG Tablet PO (08:52)
[2024-01-20] MEDS: Potassium Chloride Oral Tablet 20 MEQ 60 MEQ PO (08:52)
[2024-01-20] MEDS: Ondansetron 4 MG/2 ML Vial IV ×2 (08:55→21:07)
--- NOTE | 2024-01-20 09:07 | PN.HOSP_ITS ---
Reason for Visit Reason for Visit: Diagnoses Viral intestinal infection, unspecified (01/20/24) Hypokalemia (01/20/24) Alcohol abuse with intoxication, unspecified (01/20/24) Alcohol dependence, uncomplicated (01/20/24) Alcohol dependence with intoxication, uncomplicated (01/20/24) Depression, unspecified (01/20/24) Anxiety disorder, unspecified (01/20/24) Subjective Subjective Feeling ok. Interested in alcohol withdrawal treatment then outpt program. Objective Data Objective Data Vital Signs: Vital Signs Temp Pulse Resp BP Pulse Ox O2 Del Method 36.6 C 69 16 131/88 H 97 Room Air 01/20/24 09:00 01/20/24 09:00 01/20/24 09:00 01/20/24 09:00 01/20/24 09:00 01/20/24 09:00 Oxygen Delivery Method Room Air Weight: 75.523 kg Body Mass Index (BMI) 23.8 Lab / Micro Data 01/20/24 05:04 01/20/24 05:04 Labs: Laboratory Results - last 24 hr 01/20/24 05:04: WBC 7.3, RBC 5.15, Hgb 16.2, Hct 46.9, MCV 91.1, MCH 31.5, MCHC 34.5, RDW Std Deviation 42.6, RDW Coeff of Puma 12.7, Plt Count 323, MPV 8.5, Immature Gran % (Auto) 0.300, Neut % (Auto) 53.3, Lymph % (Auto) 35.7, Harnett % (Auto) 9.6, Eos % (Auto) 0.4, Baso % (Auto) 0.7, Absolute Neuts (auto) 3.9, Absolute Lymphs (auto) 2.61, Nucleated RBC % 0, PT 12.0, INR 0.9, Sodium 139, Potassium 3.1 L, Chloride 103, Carbon Dioxide 26.0, Anion Gap 10, BUN 11, Creatinine 0.68 L, Estim Creat Clear Calc 155.07, Est GFR (MDRD) Af Amer 169, Est GFR (MDRD) Non-Af 140, BUN/Creatinine Ratio 16.1, Glucose 118 H, Calcium 9.3, Total Bilirubin 0.60, AST 29, ALT 23, Alkaline Phosphatase 83, Total Protein 8.0, Albumin 4.4, Globulin 3.6, Albumin/Globulin Ratio 1.2, Ethyl Alcohol 385.0 H* 01/20/24 05:20: Urine Opiates Screen NEGATIVE, Urine Methadone Screen NEGATIVE, Ur Barbiturates Screen NEGATIVE, Ur Phencyclidine Scrn NEGATIVE, Ur Amphetamines Screen NEGATIVE, MDMA (Ecstasy) Screen NEGATIVE, U Benzodiazepines Scrn NEGATIVE, Urine Cocaine Screen NEGATIVE, U Cannabinoids Screen POSITIVE H, Ur Drug Screen Comment Radiography Diagnostic Testing: Radiology Impression Abdomen/Pelvis CT 01/20/24 06:29 IMPRESSION: There is mild thickening of the lay of the ascending, transverse and descending colon suggesting colitis. Electronically Signed: Whitney Michael MD at 8:13 EDT , Physical Exam Const alert and no apparent distress HEENT head/scalp atraumatic and moist oral mucous membranes Resp normal respiratory effort, no retractions, no use of accessory muscles and clear to auscultation bilaterally Cardio regular rate, regular rhythm, S1 normal heart sound and S2 normal heart sound GI normal to inspection, nondistended, normoactive bowel sounds, soft to palpation, non-tender and non-distended Extremity normal to inspection Neuro Sensorium / Orientation: awake and alert Assessment & Plan Assessment/Plan (1) Alcohol intoxication in active alcoholic: QUALIFIERS: Complication of substance-induced condition: uncomplicated Qualified Code(s): F10.220 - Alcohol dependence with intoxication, uncomplicated (2) Alcohol dependence: QUALIFIERS: Complication of substance-induced condition: uncomplicated Substance use status: with intoxication Qualified Code(s): F10.220 - Alcohol dependence with intoxication, uncomplicated (3) Viral gastroenteritis: (4) Acute hypokalemia: (5) Anxiety and depression: PLAN: Plan Alcohol withdrawal * on phenobarbital taper * thiamine folate * Addiction medicine to follow up on 01/20 as he was too somnolent today. Diarrhea * stool studies ordered, yet to be collected. Hypokalemia: * replaced. monitor. VTE prophylaxis - enoxaparin Charges/Coding Procedures Hospitalists Procedures: Other Procedure - See Report (non-billable rounding. Pt admitted after midnight. )
[2024-01-20] MEDS: Dicyclomine 10 MG Capsule 20 MG PO ×2 (09:11→23:07)
[2024-01-20] MEDS: hydrOXYzine PAM 25 MG Capsule 50 MG PO ×2 (09:11→21:07)
[2024-01-20 09:31] LABS: Magnesium 2.1 mg/dL (1.6-2.6)
--- NOTE | 2024-01-20 11:16 | ADDICTION ---
Met w/patient to complete RAMP assessments. Pt was struggling to wake. Will complete discharge plan tomorrow.
[2024-01-20] MEDS: 0.9% Saline Lock 10 ML Syringe IV (21:07)
[2024-01-20] MEDS: Gabapentin 300 MG Capsule PO (21:07)
[2024-01-20] MEDS: traZODone 100 MG Tablet PO (21:08)
[2024-01-21 03:07] VITALS: BP 133/81; PULSE 65; RESP 16; TEMP 36.9; O2SAT 97
[2024-01-21] MEDS: Phenobarbital 32.4 MG Tablet 64.8 MG PO ×6 (03:09→23:07)
[2024-01-21 09:05] LABS: Alcohol, Blood (Medical)-Serum < 3.0 mg/dL
--- NOTE | 2024-01-21 09:23 | PCM.PN.HOSP ---
Reason for Visit Reason for Visit: Diagnoses Viral intestinal infection, unspecified (01/20/24) Hypokalemia (01/20/24) Alcohol abuse with intoxication, unspecified (01/20/24) Alcohol dependence, uncomplicated (01/20/24) Alcohol dependence with intoxication, uncomplicated (01/20/24) Depression, unspecified (01/20/24) Anxiety disorder, unspecified (01/20/24) Subjective Subjective Feeling better. Objective Data Objective Data Vital Signs: Vital Signs Temp Pulse Resp BP Pulse Ox O2 Del Method 36.9 C 65 16 133/81 H 97 Room Air 01/21/24 03:07 01/21/24 03:07 01/21/24 03:07 01/21/24 03:07 01/21/24 03:07 01/21/24 03:07 Oxygen Delivery Method Room Air Weight: 75.523 kg Body Mass Index (BMI) 23.8 Intake & Output: Intake and Output for Last 24 Hours 01/19/24 01/20/24 01/21/24 23:59 23:59 23:59 Intake Total 610 / 610 Balance 610 / 610 Lab / Micro Data 01/20/24 05:04 01/21/24 07:52 Labs: Laboratory Results - last 24 hr 01/20/24 05:04: Magnesium 2.1 01/21/24 07:52: Ethyl Alcohol < 3.0 Micro: Microbiology 01/20/24 20:35 Stool Stool Lactoferrin - Final 01/20/24 20:35 Stool Clostridioides difficile (PCR) - Final Physical Exam Const alert and no apparent distress Resp normal respiratory effort and no retractions Cardio regular rate, regular rhythm, S1 normal heart sound and S2 normal heart sound GI normal to inspection, nondistended, normoactive bowel sounds and soft to palpation Neuro Sensorium / Orientation: awake and alert Assessment & Plan Assessment/Plan (1) Alcohol intoxication in active alcoholic: QUALIFIERS: Complication of substance-induced condition: uncomplicated Qualified Code(s): F10.220 - Alcohol dependence with intoxication, uncomplicated (2) Alcohol dependence: QUALIFIERS: Complication of substance-induced condition: uncomplicated Substance use status: with intoxication Qualified Code(s): F10.220 - Alcohol dependence with intoxication, uncomplicated (3) Viral gastroenteritis: (4) Acute hypokalemia: (5) Anxiety and depression: PLAN: Plan Alcohol withdrawal on phenobarbital taper thiamine folate Addiction medicine to follow up on 01/20 as he was too somnolent today. Diarrhea Suspect gastroenteritis Positive fecal WBCs. Cdiff negative. Enteric panel negative. Hypokalemia: replaced. monitor. VTE prophylaxis - enoxaparin Charges/Coding Visit Charges Inpatient E&M: 19858 Subs Hosp L2
[2024-01-21 09:36] LABS: Anion Gap 7 (5-15); BUN 12 mg/dL (7-18); BUN/Creat Ratio 16.7 RATIO (10-20); Chloride 103 mmol/L (98-107); Creatinine, Serum 0.72 mg/dL (0.70-1.30); EST Glomerular Filtration Rate 131 mL/min (>60); Est Glom Filt Rate - Afr Amer 159 mL/min (>60); Estimated Creatinine Clearance 146.45 ml/min; Glucose 82 mg/dL (74-106); Potassium 3.5 mmol/L (3.5-5.1); Sodium Level 136 mmol/L (136-145)
[2024-01-21] MEDS: Enoxaparin 40 MG/0.4 ML Syringe SC (09:56)
[2024-01-21] MEDS: Folic Acid 1 MG Tablet PO (09:56)
[2024-01-21] MEDS: Pantoprazole Sodium 40 MG in 0.9% Normal Saline (100mL MB+) 100 ML 330 MG IV (09:57)
[2024-01-21] MEDS: 0.9% Saline Lock 10 ML Syringe IV (09:57)
[2024-01-21] MEDS: hydrOXYzine PAM 25 MG Capsule 50 MG PO ×2 (10:04→15:28)
[2024-01-21] MEDS: Thiamine Hydrochloride 100 MG Tablet PO (10:04)
[2024-01-21 10:20] VITALS: BP 132/81; PULSE 60; RESP 16; TEMP 36.6; O2SAT 100
--- NOTE | 2024-01-21 11:57 | ADDICTION ---
This administrative underwriter met with PT to conduct ASAM, MSE, AUDIT assessments and to plan for d/c. PT A+Ox4 and participated actively. All assessments completed. PT plans to f/u with outpatient AOD treatment. TW completed Vivitrol Assessment. He meets criteria and would like the shot. Pt reports that he will follow up with [facility] for tx and the ongoing shot. . He reports that he does not need transportation post d/c from [facility].
[2024-01-21 15:18] VITALS: BP 116/71; PULSE 68; RESP 16; TEMP 36.5; O2SAT 99
[2024-01-21 20:29] VITALS: BP 121/76; PULSE 60; RESP 14; TEMP 36.4; O2SAT 99
[2024-01-21] MEDS: traZODone 100 MG Tablet PO (23:07)
[2024-01-21] MEDS: Gabapentin 300 MG Capsule PO (23:07)
[2024-01-22 03:05] VITALS: BP 137/78; PULSE 62; RESP 16; TEMP 36.8; O2SAT 99
[2024-01-22] MEDS: Phenobarbital 32.4 MG Tablet 64.8 MG PO ×3 (03:11→14:03)
[2024-01-22] MEDS: hydrOXYzine PAM 25 MG Capsule 50 MG PO (03:11)
[2024-01-22] MEDS: Dicyclomine 10 MG Capsule 20 MG PO (03:11)
[2024-01-22 07:41] VITALS: BP 146/90; PULSE 62; RESP 16; TEMP 37.1; O2SAT 98
[2024-01-22 07:44] VITALS: BP 146/90; PULSE 62; RESP 16; TEMP 37.1; O2SAT 99
[2024-01-22] MEDS: Gabapentin 300 MG Capsule PO (07:59)
[2024-01-22] MEDS: Folic Acid 1 MG Tablet PO (07:59)
--- NOTE | 2024-01-22 09:32 | CASEMGMT ---
SDOH must have been entered in error. Patient declines any concerns with living situation, utilities, food, or transportation. Shilpi Garay [employer]AD[employer]
[2024-01-22] MEDS: Thiamine Hydrochloride 100 MG Tablet PO (10:17)
[2024-01-22] MEDS: Enoxaparin 40 MG/0.4 ML Syringe SC (10:17)
[2024-01-22] MEDS: Pantoprazole Sodium 40 MG in 0.9% Normal Saline (100mL MB+) 100 ML 330 MG IV (10:17)
--- NOTE | 2024-01-22 13:03 | PCM.DC.SUM ---
Providers Date of Admission: 01/20/24 Primary Care Physician: Dr. Adriana Harrell MD Reason For Visit: ACUTE ALCOHOL INTOXICATION W/ IMPENDING WITHDRAWAL Diagnosis Discharge Diagnosis (1) Alcohol intoxication in active alcoholic: Status: Acute Code(s): F10.129 - Alcohol abuse with intoxication, unspecified Qualifiers: Complication of substance-induced condition: uncomplicated Qualified Code(s): F10.220 - Alcohol dependence with intoxication, uncomplicated (2) Alcohol dependence: Status: Acute Code(s): F10.20 - Alcohol dependence, uncomplicated Qualifiers: Substance use status: with intoxication Complication of substance-induced condition: uncomplicated Qualified Code(s): F10.220 - Alcohol dependence with intoxication, uncomplicated (3) Viral gastroenteritis: Status: Acute Code(s): A08.4 - Viral intestinal infection, unspecified (4) Acute hypokalemia: Status: Acute Code(s): E87.6 - Hypokalemia (5) Anxiety and depression: Status: Acute Code(s): F41.9 - Anxiety disorder, unspecified; F32.A - Depression, unspecified Plan Alcohol withdrawal on phenobarbital taper thiamine folate Addiction medicine to follow up on 01/20 as he was too somnolent today. Diarrhea Suspect gastroenteritis Positive fecal WBCs. Cdiff negative. Enteric panel negative. Hypokalemia: replaced. monitor. VTE prophylaxis - enoxaparin Medications at Discharge Home Medications multivitamin 1 tab PO DAILY #30 tabs 01/22/24 Hospital Course Operations None Procedures None Summary of Care Provided Minutes Spent on Discharge: 32 Hospital Course: Patient comes in requesting treatment for alcohol abuse. Patient had been tremulous as well as having nausea and vomiting. In addition was having diarrhea. Patient was hypokalemic when he presented did receive potassium which did improve. For his diarrhea, he underwent up infectious workup that was unremarkable though did show fecal leukocytes. I suspect patient may have had a viral gastroenteritis that was not verified on the testing. Patient's alcohol withdrawal treatment was with phenobarbital and he tolerated that well. So patient has requested Vivitrol. Patient denies any opiate use concurrently. Weight / BMI Weight Weight: 75.523 kg Body Mass Index (BMI) 23.8 ABG / Lab / Microbiology Data 01/20/24 05:04 01/21/24 07:52 Microbiology: Microbiology 01/20/24 20:35 Stool Stool Lactoferrin - Final 01/20/24 20:35 Stool Enteric Bacteriology - Final 01/20/24 20:35 Stool Clostridioides difficile (PCR) - Final D/C Instructions Discharge Diet: No restrictions Meaningful Use Info Meaningful Use Meaningful Use Diagnoses (Choose all that apply): None applicable Ischemic Stroke Statin Dosing Therapy Reference: STATIN DOSE THERAPY REFERENCE: * Patients > 75 years receive moderate or high dose statin therapy. * Patients 75 years or YOUNGER should receive HIGH intensity statin dose unless contraindicated. You will be required to document reason for non-treatment if statin daily dose does not meet guidelines. HIGH DOSE STATIN THERAPY DAILY Atorvastatin > than or = to 40 mg Rosuvastatin > than or = to 20 mg Amlodipine + Atorvastatin > than or = to 2.5/40 mg Ezetimibe + Simvastatin 10/80 mg Simvastatin 80mg Discharge Plan Admission Admit Date/Time: 01/20/24 06:23 Primary Reason for Your Visit: Alcohol withdrawal Attending Provider: Heriberto Brady Primary Care Provider: Adriana Harrell Consulting Providers: Suleiman Boucher Instructions Additional Instructions / Restrictions: Please follow up with [facility]. Discharge Orders/Prescriptions Prescriptions: New multivitamin Tablet 1 tab PO DAILY Qty: 30 0RF Referrals / Follow Up: Adriana Harrell MD [Primary Care Provider] - Disposition Disposition (needs filled in before D/C Order can be placed): Home, Self Care Charges/Coding Visit Charges Inpatient E&M: 54012 Disch Hosp >30min
[2024-01-22] MEDS: Naltrexone Microspheres 380 MG SYRINGE IM (15:52)
[2024-01-22 16:19] VITALS: BP 139/90; PULSE 69; RESP 18; TEMP 36.6; O2SAT 98
== END 2024-01-22 16:35 | disposition home or self-care (01) | DRG 897 ==
LOC: ED 05:52 → PCU 06:44
PROVIDERS: Admitting Provider Internal Medicine; Emergency Provider Emergency Medicine; PCP Internal Medicine
DX: F10.229 Alcohol dependence with intoxication, unspecified (principal); A08.4 Viral intestinal infection, unspecified; F11.11 Opioid abuse, in remission; F10.239 Alcohol dependence with withdrawal, unspecified; E87.6 Hypokalemia; F17.290 Nicotine dependence, other tobacco product, uncomplicated; Y90.8 Blood alcohol level of 240 mg/100 ml or more; Z86.19 Personal history of other infectious and parasitic diseases
CPT/HCPCS: 36415; 74176; 80048; 80053; 80307; 82077; 83630; 83735; 85025; 85610; 87493; 87506; 97802; 99283; A4216; J2405

== ENCOUNTER 2024-04-05 17:27 | Inpatient (IN) | payer BC, SELFPAY ==
[2024-04-05 17:28] VITALS: BP 188/133; BP 205/108; PULSE 108; PULSE 127; RESP 21; RESP 32; TEMP 35.8; O2SAT 98; O2SAT 99; BMI 23.6
--- NOTE | 2024-04-05 17:37 | NURSING ---
NO OLD EKGS
--- NOTE | 2024-04-05 17:42 | EKG12_ITS ---
Test Reason : Blood Pressure : / mmHG Vent. Rate : 082 BPM Atrial Rate : 082 BPM P-R Int : 162 ms QRS Dur : 074 ms QT Int : 370 ms P-R-T Axes : 076 079 065 degrees QTc Int : 432 ms Sinus rhythm with marked sinus arrhythmia Septal infarct , age undetermined Abnormal ECG Confirmed by SHAVON ADAMS, RAFFI ([id number]), graphics editor MORTEZA THURMAN ([id number]) on 04/06/2024 8:43:35 AM Referred By: PERLITA Confirmed By:RAFFI SANDS MD
[2024-04-05] MEDS: 0.9% Normal Saline (1000mL) 1,000 ML 999 ML IV (17:58)
[2024-04-05] MEDS: Ondansetron 4 MG/2 ML Vial IV (17:58)
[2024-04-05] MEDS: LORazepam 2 MG/ML Syringe 1 MG IV (17:58)
[2024-04-05 18:00] VITALS: BP 135/84; PULSE 70; RESP 11; O2SAT 99
--- NOTE | 2024-04-05 18:01 | EDS_ITS ---
HPI History of Present Illness Chief Complaint: Substance Abuse Informant: patient Onset/Context/Timing Onset: Month(s) Context: Gradual Onset Timing: Continuous Current Severity: Moderate Maximum Severity: Moderate Associated Symptoms Associated Symptoms: Positive for vomiting* and diarrhea* Narrative Narrative: 34-year-old male history of alcohol abuse abuse drinks morning fifth of alcohol a day. Requesting detox. Last drink was yesterday at 3 PM. He has had nausea, vomiting and diarrhea. Last detox was about 4 months ago. Prior similar symptoms: Yes Recent Illness/Hospitalization: No PFSH PFSH Medical History Alcohol dependence History of fracture of nasal bone History of arm fracture Hepatitis A History of gastric ulcer Anxiety and depression Drug abuse Alcohol abuse Home Medications ?Medication ?Instructions ?Recorded ?Last Taken ?Type multivitamin 1 tab PO DAILY supplement #30 tabs 01/22/24 Unknown Rx Allergy/AdvReac Type Severity Reaction Status Date / Time No Known Allergies Allergy Verified 01/20/24 07:22 Family History Other Alcoholism Anxiety Depression Mental disorder Surgical History History of wisdom tooth extraction Social History adopted: Yes Smoking Status: Current every day smoker tobacco type: e-cigarettes alcohol intake: current alcohol intake frequency: 3 or more drinks per day Alcohol type: hard liquor substance use type: former substance user what type of physical activity do you participate in: walking frequency: 3-4 times per week ROS ROS ED ROS Narrative Nausea, vomiting and diarrhea. Withdrawal. Review of Systems ROS Unobtainable: Denies due to encephalopathy Constitutional Constitutional ED: Reports chills, fever(s) and subjective Eyes Eyes: Denies blurry vision ENT ENT ED: Denies ear pain Cardiovascular Cardiovascular: Denies chest pain Respiratory/Chest Respiratory/Chest: Denies cough or dyspnea Gastrointestinal Gastrointestinal: Reports diarrhea, nausea and vomiting; Denies abdominal pain, constipation or melena Genitourinary Genitourinary ED: Denies dysuria Musculoskeletal Musculoskeletal: Denies arthralgias Integumentary Denies abscess or Abrasions Neurologic Neurologic: Denies headache(s) Psychiatric Psychiatric: Reports anxiety Endocrine Endocrinology: Denies cold intolerance Hematologic/Lymphatic Hematologic/Lymphatic: Denies easy bleeding Allergic/Immunologic Allergic/Immunologic ED: Denies mouth swelling EXAM Physical Exam Narrative Exam Narrative: 34-year-old male vital signs show tachycardia 120. Initial blood pressure of 188/133. Pulse ox 9 9% on room air. He is afebrile. He does not look septic or toxic. He definitely is going to early withdrawal. He is anxious. H EENT exam unremarkable. Neck nontender. Lungs clear. Heart tachycardic no murmur. Abdomen soft nontender. Moving all 4 extremities. Calves are nontender without edema or cords. Neurologically is awake alert no focal motor deficits. Answering questions following commands. Const Vital Signs: 04/05/24 17:28 04/05/24 17:28 04/05/24 18:00 Temperature 96.5 F L Temperature Source Temporal Pulse Rate 127 H 108 H 70 Respiratory Rate 32 H 21 H 11 L Blood Pressure 188/133 H 205/108 H 135/84 H Blood Pressure Mean 151 140 99 Pulse Ox 99 98 99 Oxygen Delivery Method Room Air Room Air Positive well nourished and well developed; Negative for obese, cachectic, contractures or unkempt General Appearance ED: well developed and NAD; Negative for unkempt, cachectic, contractures or pallor Nutritional Appearance: Negative for cachectic or obese HEENT Reports moist mucous membranes atraumatic; Negative for trauma or tenderness Eyes PERRL and EOMs intact bilaterally General Eye ED: Negative for pale conjunctiva or scleral icterus Neck no lymphadenopathy, supple and no JVD Thyroid: Negative for tender Lymph Lymphatic: no lymphadenopathy noted; Negative for lymphadenopathy Chest Wall inspection of chest normal and palpation of chest normal Chest: Negative for other Resp normal respiratory effort and clear to auscultation bilaterally Effort and Inspection: Negative for retractions Auscultation: Negative for rales, rhonchi, wheezes or diminished lung sounds Cardio regular rhythm, S1 normal heart sound, S2 normal heart sound and no murmurs; Negative for regular rate Rate: tachycardic Rhythm: Negative for abnormal rhythm Bruits: Negative for other GI soft to palpation, non-tender, non-distended and no masses Inspection: Negative for abdominal distention Palpation: Negative for tender or guarding Back/Spine no CVA tenderness General Back: Negative for CVA tenderness Cervical Spine: Negative for cervical spine tenderness Thoracic Spine / Upper Back: Negative for thoracic spinal tenderness Lumbar Spine / Lower Back: Negative for lumbar spinal tenderness Coccyx: Negative for swelling Extremity General Extremety ED: Negative for edema or tenderness General Extremity: Negative for edema Neuro oriented x3 and CN's II-XII intact bilaterally Sensorium / Orientation: alert, oriented to person, oriented to place and oriented to time; Negative for confused, lethargic or stuporous Speech: speech normal Motor Exam: strength 5/5 throughout Psych mental status grossly normal and thought process normal Appearance: Negative for unkempt Attitude: No belligerent, No agitated, No aggressive and No hostile Mood & Affect: anxious; Negative for depressed or tearful Skin General Skin Exam: Negative for jaundice or pallor Lesions: no lesions Rashes: no rashes MDM MDM MDM Narrative Medical decision making narrative: 34-year-old male alcohol abuse requesting detox. Signs of early withdrawal with tachycardia and hypertension. He will be given IV fluids due to his recent vomiting and diarrhea. Zofran for his nausea. Ativan for his anxiety and withdrawal. Have already spoken to the hospitalist about admission. Labs are pending. History & Record Review Discussion w/independent historian: Patient Additional record(s) reviewed:: Prior outpatient record, Prior ED visit and Prior labs Lab Data Attestation: I reviewed the patient's lab results. Lab results narrative: CBC shows white count 8. H&H is 16 and 47. Platelets 513. Electrolytes show sodium 134. Anion gap of 22. BUN 12 and creatinine 1.1. Glucose 128. Liver enzymes show total bilirubin 1.6 AST is 67. Alcohol levels less than 3. Labs: Laboratory Results - last 24 hr 04/05/24 17:35 WBC 8.5 RBC 5.16 Hgb 16.5 Hct 47.7 MCV 92.4 MCH 32.0 MCHC 34.6 RDW Std Deviation 45.6 H RDW Coeff of [place] 13.3 Plt Count 513 H MPV 8.9 Immature Gran % (Auto) 0.500 Neut % (Auto) 80.1 H Lymph % (Auto) 9.0 L [place] % (Auto) 9.5 Eos % (Auto) 0.0 Baso % (Auto) 0.9 Absolute Neuts (auto) 6.8 Absolute Lymphs (auto) 0.77 L Nucleated RBC % 0 Sodium 134 L Potassium 3.8 Chloride 91 L Carbon Dioxide 21.0 Anion Gap 22 H BUN 12 Creatinine 1.13 Estim Creat Clear Calc 93.31 Est GFR (MDRD) Af Amer 94 Est GFR (MDRD) Non-Af 78 BUN/Creatinine Ratio 10.6 Glucose 128 H Calcium 10.5 H Phosphorus 1.9 L Magnesium 2.1 Total Bilirubin 1.60 H AST 67 H ALT 47 Alkaline Phosphatase 99 Total Protein 8.8 H Albumin 4.9 Globulin 3.9 Albumin/Globulin Ratio 1.3 Ethyl Alcohol < 3.0 Rhythm Strip Rhythm Strip: Sinus Rhythm Rate: 82 Ectopy: None EKG Initial EKG: Attestation: I personally reviewed and interpreted this EKG as follows: Interpretation: Sinus Rhythm and No Acute Injury Pattern Comments: Normal sinus rhythm rate 82 no acute signs of VT or ischemia. Discharge Plan Dx/Rx/DC Orders Clinical Impression: Alcohol abuse, Drug abuse, Desire for detoxification, Alcohol withdrawal Disposition Disposition: Acute Care [facility]
[2024-04-05 18:08] LABS: Absolute Lymphocyte Count 0.77 X10^3/uL (0.83-4.51); Absolute Neutrophil Count 6.8 X10^3/uL (2.0-7.7); Basophil# 0.08 X10^3/uL; Basophil% 0.9 % (0-1); Hematocrit 47.7 % (40-54); Hemoglobin 16.5 g/dL (13.0-16.5); Lymphocyte # 0.77 X10^3/ul (0.83-4.51); Mean Corp Hgb Conc 34.6 g/dL (32-36); Mean Corpuscular Volume 92.4 fL (80-94); Mean Platelet Vol. 8.9 fl (6.2-12.0); Monocyte# 0.81 X10^3/uL; Monocyte% 9.5 % (0-10); NRBC Flagged by Analyzer 0 % (0-5); Neutrophil # 6.81 X10^3/uL (2.7-7.7); Neutrophil % 80.1 % (47-70); Platelet Count 513 K/mm3 (150-450); RBC Distribution Width CV 13.3 % (11.6-14.6); RBC Distribution Width SD 45.6 fl (35.1-43.9); Red Blood Count 5.16 M/mm3 (4.6-6.2); White Blood Count 8.5 K/mm3 (4.4-11.0)
--- NOTE | 2024-04-05 18:09 | PCM.HP.STD ---
HPI - General General Date of Admission: 04/05/24 Date of Service: 04/05/24 Chief Complaint: Acute EtOH withdrawal. HPI Narrative The patient is a 34 y/o M w/ PMHx: GERD w/ Hx Gastric ulcer, Former cigarette tobacco use-->vaping, Cannabis usage (smoked), EtOH abuse (>1/5th vodka daily) who presents to the [facility] on 04/05/24 w/ noted acute EtOH withdrawal, onset starting earlier on day of presentation, notably worsening, following last EtOH intake at ~ 4 pm the evening prior with onset of nausea, emesis, dyspepsia, severe tremors, agitation, tactile disturbances, racing heart sensation prompting ED evaluation. Patient interested in attaining sober status noting that he is sick of living like this. He notes his works at [employer] and does not have any substance abuse history. He notes having a good support system in place. He denies any prior breakthrough seizure history. Workup in the ED included T96.5, heart rate 127, BP 180/133, respiratory rate 32, 99% on room air, most recent repeat vital signs T97.8, heart rate 65, BP 120s over 72, respiratory rate 16, 97% on room air, CBC with WC is 8.5, human 16.5, platelet 513 with lymphopenia, CMP with sodium 134, chloride 91, anion gap 22, glucose 128, calcium 10.5, T. bili 1.60, hepatic profile with AST 67 otherwise unremarkable, ethyl alcohol less than 3. Pending urine drug screen upon evaluation. In the ED given patient's severe alcohol withdrawal symptoms and presentation patient administered 1 L normal saline, Ativan 1 mg IV x 1 as well as Zofran 4 mg IV x 1. FORMERLY [facility], [facility]–1983 Medical History History of fracture of nasal bone History of arm fracture Hepatitis A History of gastric ulcer Anxiety and depression Drug abuse Alcohol abuse Home Medications ?Medication ?Instructions ?Recorded ?Last Taken ?Type multivitamin 1 tab PO DAILY supplement #30 tabs 01/22/24 Unknown Rx Allergy/AdvReac Type Severity Reaction Status Date / Time No Known Allergies Allergy Verified 01/20/24 07:22 Family History Father Alcoholism Anxiety Depression Mental disorder Mother Anxiety Depression Mental disorder Methamphetamine abuse Surgical History History of wisdom tooth extraction Social History (Updated 04/05/24 @ 19:[address] Kay Chandra MD) adopted: Yes household members: spouse and family Smoking Status: Current every day smoker tobacco type: e-cigarettes Electronic Cigarette Use: with nicotine how long ago did patient quit smoking: Former cig tobacco quit 3 yrs prior 1 ppd since teen->vaping. alcohol intake: current alcohol intake frequency: 3 or more drinks per day Alcohol type: hard liquor substance use type: marijuana what type of physical activity do you participate in: walking frequency: 3-4 times per week ROS ROS Narrative Admission Review of Systems: CONSTITUTIONAL: No weight loss, fever, chills, + weakness or fatigue. HEENT: Eyes: No visual loss, blurred vision, double vision or yellow sclerae. Ears, Nose, Throat: No hearing loss, sneezing, congestion, runny nose or sore throat. SKIN: No rash or itching, lesions, wounds. CARDIOVASCULAR: No chest pain, chest pressure or chest discomfort, palpitations, edema, orthopnea, syncopal events. RESPIRATORY: No shortness of breath, cough or sputum, wheezing, hemoptysis. GASTROINTESTINAL: + Anorexia, nausea, vomiting, dyspepsia. No diarrhea, abdominal pain, melena, BRBPR. GENITOURINARY: No dysuria, frequency, urgency or retention. NEUROLOGICAL: + Tremors, agitation, tactile disturbances. No headache, dizziness, syncope, paralysis, ataxia, numbness or tingling in the extremities, focal weakness, change in bowel or bladder control, seizure. MUSCULOSKELETAL: + muscle, back pain, joint pain or stiffness. HEMATOLOGIC: No anemia, bleeding or bruising. LYMPHATICS: No enlarged nodes. No history of splenectomy. PSYCHIATRIC: No history of depression or anxiety. ENDOCRINOLOGIC: + sweating, cold or heat intolerance. No polyuria or polydipsia. ALLERGIES: No history of asthma, hives, eczema or rhinitis. Vital Signs Vital Signs Vital Signs: 04/05/24 17:28 04/05/24 17:28 04/05/24 18:00 Temperature 96.5 F L Temperature Source Temporal Pulse Rate 127 H 108 H 70 Respiratory Rate 32 H 21 H 11 L Blood Pressure 188/133 H 205/108 H 135/84 H Blood Pressure Mean 151 140 99 Pulse Ox 99 98 99 Oxygen Delivery Method Room Air Room Air Weight Weight: 165 lb Body Mass Index (BMI) 23.6 Physical Exam Narrative Physical Examination: General: Awake, alert, oriented x 3 and cooperative, laying in the ED bed, extremely tremulous, evidence severe withdrawal. Skin: Normal color, normal turgor, no icterus, no cyanosis except occasional staged ecchymoses HEENT: AT/NC, EOMI, PERRLA, dry MM, no carotid bruits or JVD noted. Lungs: Diminished, greater bases, mild increased respiratory rate but no distress, no rales, ronchi or wheezing. Heart: Tachycardic with regular rhythm; no gallop, rub audible. Abdomen: Soft, mild generalized discomfort but no rebound or guarding, ND, hyperactive BS, no severely appreciated HSM. Extremities: No cyanosis, clubbing, or edema. Neurological: Patient awake, alert, oriented as noted, cognitive function intact; pupils equally reactive to light and accommodation, cranial nerves grossly normal, moving all 4 extremities, no focal deficits, strength severely globally decreased secondary to acute presentation, significant tremors, tactile disturbances, severe withdrawal evident. Psychiatric: Affect appears fatigued, agitated, restless, evident withdrawal, no acute evidence of depressive or anxiety feelings and denies marked history but suspect likely underlying. Results Lab / Micro Data 04/05/24 17:35 04/05/24 17:35 Labs: Laboratory Results - last 24 hr 04/05/24 17:35: WBC 8.5, RBC 5.16, Hgb 16.5, Hct 47.7, MCV 92.4, MCH 32.0, MCHC 34.6, RDW Std Deviation 45.6 H, RDW Coeff of [place] 13.3, Plt Count 513 H, MPV 8.9, Immature Gran % (Auto) 0.500, Neut % (Auto) 80.1 H, Lymph % (Auto) 9.0 L, [place] % (Auto) 9.5, Eos % (Auto) 0.0, Baso % (Auto) 0.9, Absolute Neuts (auto) 6.8, Absolute Lymphs (auto) 0.77 L, Nucleated RBC % 0 Rhythm Strip Rhythm Strip: Sinus Rhythm Rate: 82 Ectopy: None Assessment & Plan Assessment/Plan (1) Alcohol withdrawal: PLAN: Plan The patient is a 34 y/o M w/ PMHx: GERD w/ Hx Gastric ulcer, Former cigarette tobacco use-->vaping, Cannabis usage (smoked), EtOH abuse (>1/5th vodka daily) who presents to the [facility] on 04/05/24 w/ noted acute EtOH withdrawal, onset starting earlier on day of presentation, notably worsening, following last EtOH intake at ~ 4 pm the evening prior with onset of nausea, emesis, dyspepsia, severe tremors, agitation, tactile disturbances, racing heart sensation prompting ED evaluation. #1. Acute EtOH Withdrawal with significantly elevated CIWA scoring upon ED arrival: Will admit to [facility] given improvement of VS in the ED, routine labs obtained in the ED upon presentation as noted, pending UDS. Given interest in sobriety, will initiate and continue on protocol with taper course of Phenobarbital, as needed gabapentin, Catapres, Bentyl, Vistaril, IV fluids, IV antiemetics, Tylenol as needed for pain. Will consult Case management for assistance for transition to next level of rehabilitation care. Mag, phos pending. Maintain on CIWA protocol concurrently. #2. Hyponatremia, hypochloremia, acute: Likely hypovolemic component on top of chronic alcohol abuse as noted, admission CMP with sodium 134, chloride 91, will hydrate and continue to closely monitor with repeat labs if needed. #3 mild hyperbilirubinemia, elevated AST, chronic component secondary to alcohol abuse: Admission CMP with total bilirubin 1.60, AST/ALT 67/47, alk phos 99, AST more elevated previously, encourage sobriety as noted, may repeat CMP labs as felt necessary. #4. Elevated BP without hypertensive diagnosis: Likely secondary to acute withdrawal presentation, improving the ED with interventions, continue to monitor and add regimen if appropriate, as needed IV hydralazine in the interim. #5. Former cigarette tobacco use-->vaping: Encouraged cessation, inpatient consultation per RT, NR if desired. #6. Cannabis usage (smoked): UDS pending upon evaluation, chart history does report prior drug use, denying any other substance use, encourage clean status given abuse history. #7. GERD with chart reported history of gastric ulcer: Per current list on a regimen, will have as needed Mylanta but low threshold to add PPI if needed. #8. DVT prophylaxis: Low risk for type of admission. Charges/Coding Visit Charges Inpatient E&M: 65400 Init Hosp L3
[2024-04-05 18:18] LABS: Alcohol, Blood (Medical)-Serum < 3.0 mg/dL
--- NOTE | 2024-04-05 18:21 | NURSING ---
MED SURG WHITE ETOH ABUSE AND DETOX
[2024-04-05 18:24] LABS: ALB/GLOB Ratio 1.3 RATIO (0.9-2.4); AST(SGOT) 67 U/L (15-37); Alanine Aminotransfer ALT/SGPT 47 U/L (16-61); Albumin, Serum 4.9 g/dL (3.2-5.0); Alkaline Phosphatase 99 U/L (45-117); Anion Gap 22 (5-15); BUN 12 mg/dL (7-18); BUN/Creat Ratio 10.6 RATIO (10-20); Calcium,Total 10.5 mg/dL (8.5-10.1); Chloride 91 mmol/L (98-107); Creatinine, Serum 1.13 mg/dL (0.70-1.30); EST Glomerular Filtration Rate 78 mL/min (>60); Est Glom Filt Rate - Afr Amer 94 mL/min (>60); Estimated Creatinine Clearance 93.31 ml/min; Globulin 3.9 g/dL (2.2-4.2); Glucose 128 mg/dL (74-106); Magnesium 2.1 mg/dL (1.6-2.6); Phosphorus 1.9 mg/dL (2.5-4.9); Potassium 3.8 mmol/L (3.5-5.1); Protein, Total 8.8 g/dL (6.4-8.2); Sodium Level 134 mmol/L (136-145)
[2024-04-05 18:39] VITALS: BP 135/84; PULSE 70; RESP 11; TEMP 36; O2SAT 99
[2024-04-05 18:46] VITALS: BP 127/72; PULSE 65; RESP 16; TEMP 36.6; O2SAT 97
[2024-04-05 18:54] VITALS: BMI 23.6
[2024-04-05] MEDS: Phenobarbital 32.4 MG Tablet 64.8 MG PO ×2 (19:01→22:58)
[2024-04-05] MEDS: Lactated Ringers 1,000 ML 125 ML IV (19:57)
[2024-04-05] MEDS: Dicyclomine 10 MG Capsule 20 MG PO (20:03)
[2024-04-05] MEDS: hydrOXYzine PAM 25 MG Capsule 50 MG PO (20:03)
[2024-04-05 20:08] VITALS: BP 140/81; PULSE 74; RESP 16; TEMP 36.9; O2SAT 100
[2024-04-05] MEDS: SODIUM PHOS M BASIC D BASIC IV (22:05)
[2024-04-05] MEDS: NORMAL SALINE 0.9% IV (22:05)
[2024-04-05] MEDS: traZODone 100 MG Tablet PO (22:05)
[2024-04-06] MEDS: Phenobarbital 32.4 MG Tablet 64.8 MG PO ×6 (02:57→22:59)
[2024-04-06 03:05] VITALS: BP 136/80; PULSE 61; RESP 16; TEMP 36.8; O2SAT 98
[2024-04-06 03:39] LABS: Amphetamine Urine VISTA NEGATIVE (<1000 ng/mL); Barbiturate Urine VISTA POSITIVE (< 200 ng/mL); Benzodiazepine Urine VISTA NEGATIVE (< 200 ng/mL); Cocaine Urine VISTA NEGATIVE (< 300 ng/mL); Ecstacy Urine VISTA NEGATIVE (< 500 ng/mL); Methadone Urine VISTA NEGATIVE (< 300 ng/mL); PCP Urine VISTA NEGATIVE (< 25 ng/mL); THC Urine VISTA POSITIVE (< 50 ng/mL); Vista UDS pH Range 7
--- NOTE | 2024-04-06 07:26 | PN.HOSP_ITS ---
Reason for Visit Reason for Visit: Diagnoses Alcohol use, unspecified with withdrawal, unspecified (04/05/24) Subjective Subjective 34-year-old gentleman with history of chronic alcohol dependence presented with acute alcohol withdrawal Objective Data Objective Data Vital Signs: Vital Signs Temp Pulse Resp BP Pulse Ox O2 Del Method 98.3 F 61 16 136/80 H 98 Room Air 04/06/24 03:05 04/06/24 03:05 04/06/24 03:05 04/06/24 03:05 04/06/24 03:05 04/06/24 03:05 Oxygen Delivery Method Room Air Weight: 74.843 kg Body Mass Index (BMI) 23.6 Intake & Output: Intake and Output for Last 24 Hours 04/04/24 04/05/24 04/06/24 23:59 23:59 23:59 Intake Total 1277.08 / 1277.08 257 / 257 Balance 1277.08 / 1277.08 257 / 257 Lab / Micro Data 04/05/24 17:35 04/05/24 17:35 Labs: Laboratory Results - last 24 hr 04/05/24 17:35: WBC 8.5, RBC 5.16, Hgb 16.5, Hct 47.7, MCV 92.4, MCH 32.0, MCHC 34.6, RDW Std Deviation 45.6 H, RDW Coeff of [place] 13.3, Plt Count 513 H, MPV 8.9, Immature Gran % (Auto) 0.500, Neut % (Auto) 80.1 H, Lymph % (Auto) 9.0 L, [place] % (Auto) 9.5, Eos % (Auto) 0.0, Baso % (Auto) 0.9, Absolute Neuts (auto) 6.8, A bsolute Lymphs (auto) 0.77 L, Nucleated RBC % 0, Sodium 134 L, Potassium 3.8, C hloride 91 L, Carbon Dioxide 21.0, Anion Gap 22 H, BUN 12, Creatinine 1.13, Estim Creat Clear Calc 93.31, Est GFR (MDRD) Af Amer 94, Est GFR (MDRD) Non-Af 78, BUN/Creatinine Ratio 10.6, Glucose 128 H, Calcium 10.5 H, Phosphorus 1.9 L, Magnesium 2.1, Total Bilirubin 1.60 H, AST 67 H, ALT 47, Alkaline Phosphatase 99, Total Protein 8.8 H, Albumin 4.9, Globulin 3.9, Albumin/Globulin Ratio 1.3, Ethyl Alcohol < 3.0 04/06/24 03:00: Urine Opiates Screen NEGATIVE, Urine Methadone Screen NEGATIVE, Ur Barbiturates Screen POSITIVE H, Ur Phencyclidine Scrn NEGATIVE, Ur Amphetamines Screen NEGATIVE, MDMA (Ecstasy) Screen NEGATIVE, U Benzodiazepines Scrn NEGATIVE, Urine Cocaine Screen NEGATIVE, U Cannabinoids Screen POSITIVE H, Ur Drug Screen Comment Rhythm Strip Rhythm Strip: Sinus Rhythm Rate: 82 Ectopy: None Physical Exam Narrative GENERAL: cooperative HEENT: Atraumatic; normocephalic EYES; Anicteric, Normal Conjunctiva NECK; supple, normal thyroid, RESPIRATORY: Diminished to auscultation CARDIOVASCULAR: Regular S1 S2, GI: soft, normoactive bowel sounds, : No Renal angle tenderness; EXTREMITIES: No edema, no clubbing, MUSCULOSKELETAL: no muscle wasting NEURO: Awake; no lateralizing signs. SKIN: No Rash PSYCH; Flat affect Assessment & Plan Assessment/Plan (1) Alcohol withdrawal: PLAN: Plan 34-year-old gentleman with history of chronic alcohol dependence presented with acute alcohol withdrawal 1. Acute alcohol withdrawal - Patient has been admitted for treatment with phenobarb taper in addition to adjuvant medications including gabapentin, Bentyl, hydroxyzine and clonidine as needed for alcohol withdrawal symptoms. Patient was also placed on thiamine and folic acidConsultation placed to [facility] counseling services 2. Hyponatremia ? Secondary to beer potomania monitoring with daily BMPs 3. Acute transaminitis ? Secondary to alcohol use 4. Elevated blood pressure ? Thought to be secondary to patient withdrawal 5. DVT prophylaxis ? Low risk with encouraging ambulation Time spent in the patient's overall evaluation,decision-making process, review of diagnostic data, adjustment of management, discussion with other providers, nursing nursing and ancillary staff involved in patient's care documentation 35 Minutes Charges/Coding Visit Charges Inpatient E&M: 59365 Subs Hosp L2
[2024-04-06 07:34] VITALS: O2SAT 97
[2024-04-06 07:55] VITALS: BP 130/79; PULSE 53; RESP 16; TEMP 36.8; O2SAT 99
[2024-04-06] MEDS: Multivitamins,Ther W-Minerals Tablet 1 TABLET PO (07:58)
[2024-04-06] MEDS: Folic Acid 1 MG Tablet PO (07:58)
[2024-04-06] MEDS: Thiamine Hydrochloride 100 MG Tablet PO (07:58)
[2024-04-06] MEDS: Gabapentin 300 MG Capsule PO (08:03)
[2024-04-06] MEDS: hydrOXYzine PAM 25 MG Capsule 50 MG PO ×2 (08:03→21:29)
[2024-04-06] MEDS: Dicyclomine 10 MG Capsule 20 MG PO (08:03)
[2024-04-06] MEDS: Na Biphos/Potassium Phosphate PACKET 1 PACKET PO ×3 (10:46→21:29)
--- NOTE | 2024-04-06 12:20 | ADDICTION ---
This account underwriter met with PT to conduct ASAM, MSE, AUDIT, DUDIT assessments and to plan for d/c. PT A+Ox4 and participated actively. All assessments completed and placed in PT's chart. PT plans to f/u at [facility] for follow-up outpatient treatment services. He was also screened for Vivitrol and met criteria. He reports he will follow up with Dr. Saez for IOP. and MAT.
[2024-04-06 14:38] VITALS: BP 137/81; PULSE 59; RESP 15; TEMP 36.6; O2SAT 99
[2024-04-06 18:54] VITALS: BP 126/83; PULSE 61; RESP 16; TEMP 36.6; O2SAT 99
[2024-04-06] MEDS: Ibuprofen 600 MG Tablet PO (21:29)
[2024-04-06] MEDS: traZODone 100 MG Tablet PO (21:29)
[2024-04-06] MEDS: Loperamide 2 MG Capsule PO (21:29)
[2024-04-06 21:48] VITALS: BP 137/88; PULSE 65; RESP 16; TEMP 36.6; O2SAT 100
[2024-04-06] MEDS: Acetaminophen 325 MG Tablet 650 MG PO (22:59)
[2024-04-07] VITALS (7 sets, daily range): BP systolic 127–131; BP diastolic 76–89; PULSE 62–80; RESP 16–18; TEMP 36.6–37.3; O2SAT 95–100
[2024-04-07] MEDS: Phenobarbital 32.4 MG Tablet 64.8 MG PO ×6 (03:09→22:23)
[2024-04-07] MEDS: Gabapentin 300 MG Capsule PO ×2 (03:12→22:23)
[2024-04-07] MEDS: Na Biphos/Potassium Phosphate PACKET 1 PACKET PO ×3 (06:22→20:50)
--- NOTE | 2024-04-07 07:30 | PCM.PN.HOSP ---
Reason for Visit Reason for Visit: Diagnoses Alcohol use, unspecified with withdrawal, unspecified (04/05/24) Subjective Subjective Patient seen complains of feeling tired and restless. Objective Data Objective Data Vital Signs: Vital Signs Temp Pulse Resp BP Pulse Ox O2 Del Method 98.2 F 67 16 127/76 H 100 Room Air 04/07/24 03:15 04/07/24 03:15 04/07/24 03:15 04/07/24 03:15 04/07/24 03:15 04/07/24 03:15 Oxygen Delivery Method Room Air Weight: 74.843 kg Body Mass Index (BMI) 23.6 Intake & Output: Intake and Output for Last 24 Hours 04/05/24 04/06/24 04/07/24 23:59 23:59 23:59 Intake Total 1277.08 / 1277.08 2629.92 / 2629.92 Balance 1277.08 / 1277.08 2629.92 / 2629.92 Lab / Micro Data 04/05/24 17:35 04/05/24 17:35 Rhythm Strip Rhythm Strip: Sinus Rhythm Rate: 82 Ectopy: None Physical Exam Narrative GENERAL: cooperative HEENT: Atraumatic; normocephalic EYES; Anicteric, Normal Conjunctiva NECK; supple, normal thyroid, RESPIRATORY: Diminished to auscultation CARDIOVASCULAR: Regular S1 S2, GI: soft, normoactive bowel sounds, : No Renal angle tenderness; EXTREMITIES: No edema, no clubbing, MUSCULOSKELETAL: no muscle wasting NEURO: Awake; no lateralizing signs. SKIN: No Rash PSYCH; Flat affect Assessment & Plan Assessment/Plan (1) Alcohol withdrawal: PLAN: Plan 34-year-old gentleman with history of chronic alcohol dependence presented with acute alcohol withdrawal 1. Acute alcohol withdrawal - Patient has been admitted for treatment with phenobarb taper in addition to adjuvant medications including gabapentin, Bentyl, hydroxyzine and clonidine as needed for alcohol withdrawal symptoms. Patient was also placed on thiamine and folic acidConsultation placed to [facility] counseling services -04/07/2024 patient seen complains of feeling tired and restless. 2. Hyponatremia ? Secondary to beer potomania monitoring with daily BMPs 3. Acute transaminitis ? Secondary to alcohol use 4. Elevated blood pressure ? Thought to be secondary to patient withdrawal 5. DVT prophylaxis ? Low risk with encouraging ambulation Time spent in the patient's overall evaluation,decision-making process, review of diagnostic data, adjustment of management, discussion with other providers, nursing nursing and ancillary staff involved in patient's care documentation 35 Minutes Charges/Coding Visit Charges Inpatient E&M: 82268 Subs Hosp L2
[2024-04-07] MEDS: Multivitamins,Ther W-Minerals Tablet 1 TABLET PO (09:16)
[2024-04-07] MEDS: Thiamine Hydrochloride 100 MG Tablet PO (09:16)
[2024-04-07] MEDS: Folic Acid 1 MG Tablet PO (09:16)
[2024-04-07] MEDS: Acetaminophen 325 MG Tablet 650 MG PO ×2 (09:23→17:56)
[2024-04-07] MEDS: hydrOXYzine PAM 25 MG Capsule 50 MG PO (09:24)
--- NOTE | 2024-04-07 12:04 | NURSING ---
covid swab obtained and sent to lab-[facility] notified to collect other resp. panel
[2024-04-07] MEDS: Ibuprofen 600 MG Tablet PO ×2 (15:07→22:23)
[2024-04-07] MEDS: traZODone 100 MG Tablet PO (22:23)
[2024-04-08] MEDS: Phenobarbital 32.4 MG Tablet 64.8 MG PO ×3 (02:42→14:52)
[2024-04-08 03:00] VITALS: BP 134/81; PULSE 86; RESP 16; TEMP 36.6; O2SAT 99
[2024-04-08] MEDS: Na Biphos/Potassium Phosphate PACKET 1 PACKET PO ×2 (05:37→14:25)
--- NOTE | 2024-04-08 07:37 | PN.HOSP_ITS ---
Reason for Visit Reason for Visit: Diagnoses Alcohol use, unspecified with withdrawal, unspecified (04/05/24) Subjective Subjective Patient did complain of upper respiratory tract symptoms, respiratory panel did reveal rhinovirus infection. Patient currently being treated symptomatically Objective Data Objective Data Vital Signs: Vital Signs Temp Pulse Resp BP Pulse Ox O2 Del Method 97.9 F 86 16 134/81 H 99 Room Air 04/08/24 03:00 04/08/24 03:00 04/08/24 03:00 04/08/24 03:00 04/08/24 03:00 04/08/24 03:00 Oxygen Delivery Method Room Air Weight: 74.843 kg Body Mass Index (BMI) 23.6 Intake & Output: Intake and Output for Last 24 Hours 04/06/24 04/07/24 04/08/24 23:59 23:59 23:59 Intake Total 2629.92 / 2629.92 1800 / 1800 Balance 2629.92 / 2629.92 1800 / 1800 Lab / Micro Data 04/05/24 17:35 04/05/24 17:35 Micro: Microbiology 04/07/24 12:20 Mucosa - Nasopharyngeal Respiratory Panel (PCR) - Final Rhinovirus 04/07/24 11:15 Nasal Secretion SARS-CoV-2 Antigen (Rapid) - Final Rhythm Strip Rhythm Strip: Sinus Rhythm Rate: 82 Ectopy: None Physical Exam Narrative GENERAL: cooperative HEENT: Atraumatic; normocephalic EYES; Anicteric, Normal Conjunctiva NECK; supple, normal thyroid, RESPIRATORY: Diminished to auscultation CARDIOVASCULAR: Regular S1 S2, GI: soft, normoactive bowel sounds, : No Renal angle tenderness; EXTREMITIES: No edema, no clubbing, MUSCULOSKELETAL: no muscle wasting NEURO: Awake; no lateralizing signs. SKIN: No Rash PSYCH; Flat affect Assessment & Plan Assessment/Plan (1) Alcohol withdrawal: PLAN: Plan 34-year-old gentleman with history of chronic alcohol dependence presented with acute alcohol withdrawal 1. Acute alcohol withdrawal - Patient has been admitted for treatment with phenobarb taper in addition to adjuvant medications including gabapentin, Bentyl, hydroxyzine and clonidine as needed for alcohol withdrawal symptoms. Patient was also placed on thiamine and folic acidConsultation [facility] -04[facility]07[facility]2024 patient seen complains of feeling tired and restless. 2. Hyponatremia ? Secondary to beer potomania monitoring with daily BMPs 3. Acute transaminitis ? Secondary to alcohol use 4. Elevated blood pressure ? Thought to be secondary to patient withdrawal 5. DVT prophylaxis ? Low risk with encouraging ambulation 6. Acute rhinovirus infection ? Symptomatic treatment Time spent in the patient's overall evaluation,decision-making process, review of diagnostic data, adjustment of management, discussion with other providers, nursing nursing and ancillary staff involved in patient's care documentation 35 Minutes Charges/Coding Visit Charges Inpatient E&M: 54975 Subs Hosp L2
[2024-04-08 08:42] VITALS: BP 154/85; PULSE 92; RESP 18; TEMP 36.9; O2SAT 100
[2024-04-08] MEDS: Folic Acid 1 MG Tablet PO (08:44)
[2024-04-08] MEDS: Multivitamins,Ther W-Minerals Tablet 1 TABLET PO (08:44)
[2024-04-08] MEDS: Thiamine Hydrochloride 100 MG Tablet PO (08:45)
[2024-04-08] MEDS: Ibuprofen 600 MG Tablet PO (08:54)
--- NOTE | 2024-04-08 10:04 | PCM.DC.SUM ---
Providers Date of Admission: 04/05/24 Date of Discharge: 04/08/24 Primary Care Physician: Dr. Adriana Harrell MD Reason For Visit: ACUTE ETOH WITHDRAWAL Diagnosis Discharge Diagnosis (1) Alcohol withdrawal: Status: Acute Code(s): F10.939 - Alcohol use, unspecified with withdrawal, unspecified Plan 34-year-old gentleman with history of chronic alcohol dependence presented with acute alcohol withdrawal 1. Acute alcohol withdrawal - Patient has been admitted for treatment with phenobarb taper in addition to adjuvant medications including gabapentin, Bentyl, hydroxyzine and clonidine as needed for alcohol withdrawal symptoms. Patient was also placed on thiamine and folic acidConsultation placed to [facility] counseling services -04/07/2024 patient seen complains of feeling tired and restless. ? 04/08/2024; symptoms improved plan is for patient to be discharged home to follow-up with PCP as 2. Hyponatremia ? Secondary to beer potomania monitoring with daily BMPs 3. Acute transaminitis ? Secondary to alcohol use 4. Elevated blood pressure ? Thought to be secondary to patient withdrawal 5. DVT prophylaxis ? Low risk with encouraging ambulation 6. Acute rhinovirus infection ? Symptomatic treatment Time spent in the patient's overall evaluation,decision-making process, review of diagnostic data, adjustment of management, discussion with other providers, nursing nursing and ancillary staff involved in patient's care documentation 35 Minutes Medications at Discharge Home Medications multivitamin 1 tab PO DAILY supplement #30 tabs 01/22/24 Physical Exam Narrative GENERAL: cooperative HEENT: Atraumatic; normocephalic EYES; Anicteric, Normal Conjunctiva NECK; supple, normal thyroid, RESPIRATORY: Diminished to auscultation CARDIOVASCULAR: Regular S1 S2, GI: soft, normoactive bowel sounds, : No Renal angle tenderness; EXTREMITIES: No edema, no clubbing, MUSCULOSKELETAL: no muscle wasting NEURO: Awake; no lateralizing signs. SKIN: No Rash PSYCH; Flat affect Weight / BMI Weight Weight: 74.843 kg Body Mass Index (BMI) 23.6 ABG / Lab / Microbiology Data 04/05/24 17:35 04/05/24 17:35 Microbiology: Microbiology 04/07/24 12:20 Mucosa - Nasopharyngeal Respiratory Panel (PCR) - Final Rhinovirus 04/07/24 11:15 Nasal Secretion SARS-CoV-2 Antigen (Rapid) - Final D/C Instructions Discharge Diet: No restrictions Discharge Activity: Return to Normal Activity Call your doctor if you observe: Fever of 101 or Higher, Shortness of breath, Fainting spells and Chest pain Meaningful Use Info Meaningful Use Meaningful Use Diagnoses (Choose all that apply): None applicable Ischemic Stroke Statin Dosing Therapy Reference: STATIN DOSE THERAPY REFERENCE: * Patients > 75 years receive moderate or high dose statin therapy. * Patients 75 years or YOUNGER should receive HIGH intensity statin dose unless contraindicated. You will be required to document reason for non-treatment if statin daily dose does not meet guidelines. HIGH DOSE STATIN THERAPY DAILY Atorvastatin > than or = to 40 mg Rosuvastatin > than or = to 20 mg Amlodipine + Atorvastatin > than or = to 2.5/40 mg Ezetimibe + Simvastatin 10/80 mg Simvastatin 80mg Discharge Plan Admission Admit Date/Time: 04/05/24 18:09 Attending Provider: Suleiman Fuller Primary Care Provider: Adriana Harrell Consulting Providers: Kay Chandra Discharge Orders/Prescriptions Prescriptions: Continued multivitamin Tablet 1 tab PO DAILY Qty: 30 0RF Referrals / Follow Up: Adriana Harrell MD [Primary Care Provider] - Within 2 Weeks Disposition Disposition (needs filled in before D/C Order can be placed): Home, Self Care Charges/Coding Visit Charges Inpatient E&M: 66730 Disch Hosp >30min
--- NOTE | 2024-04-08 10:26 | PHA.DC.MR.R ---
Pharmacy [place] Med Reconciliation Pharmacy Service has performed discharge medication reconciliation for this patient. No new medications at time of discharge medication review. The patient's discharge medication list was reviewed for discrepancies and discrepancies were resolved. Medications at Discharge Home Medications multivitamin 1 tab PO DAILY supplement #30 tabs 01/22/24
[2024-04-08] MEDS: Phenol/Sodium Phenolate 180ML 3 SPRAY MUCOUS MEM (11:00)
[2024-04-08] MEDS: hydrOXYzine PAM 25 MG Capsule 50 MG PO (11:04)
[2024-04-08] MEDS: Naltrexone Microspheres 380 MG SYRINGE IM (14:27)
[2024-04-08] MEDS: Vivitrol ID Card 1 EACH MC (14:28)
[2024-04-08] MEDS: Vivitrol Administration Needles 1 EACH MC (14:28)
[2024-04-08 15:05] VITALS: BP 147/93; PULSE 85; RESP 16; TEMP 36.6; O2SAT 100
== END 2024-04-08 15:10 | disposition home or self-care (01) | DRG 897 ==
LOC: ED 17:51 → MS3 18:05
PROVIDERS: Admitting Provider Family Medicine; Emergency Provider Emergency Medicine; PCP Internal Medicine; Visit Provider Internal Medicine
DX: F10.239 Alcohol dependence with withdrawal, unspecified (principal); E87.1 Hypo-osmolality and hyponatremia; K21.9 Gastro-esophageal reflux disease without esophagitis; F17.290 Nicotine dependence, other tobacco product, uncomplicated; F41.9 Anxiety disorder, unspecified; Y90.0 Blood alcohol level of less than 20 mg/100 ml; B34.8 Other viral infections of unspecified site; R74.01 Elevation of levels of liver transaminase levels; R03.0 Elevated blood-pressure reading, without diagnosis of hypertension; Z79.899 Other long term (current) drug therapy; Z81.1 Family history of alcohol abuse and dependence
CPT/HCPCS: 80053; 80307; 82077; 83735; 84100; 85025; 87633; 87811; 93005; 99284; 99406; J7030; J7050; J7120; A4216; J2405

== ENCOUNTER → 2024-04-26 | Outpatient (CLI) | payer BC, SELFPAY ==
[2024-04-26 15:46] LABS: Absolute Lymphocyte Count 2.65 X10^3/uL (0.83-4.51); Absolute Neutrophil Count 2.7 X10^3/uL (2.0-7.7); Basophil# 0.08 X10^3/uL; Basophil% 1.3 % (0-1); Eosinophil# 0.13 X10^3/uL; Eosinophils% 2.1 % (0-5); Hematocrit 43.3 % (40-54); Hemoglobin 14.4 g/dL (13.0-16.5); Lymphocyte # 2.65 X10^3/ul (0.83-4.51); Lymphocyte % 42.2 % (19-41); Mean Corp Hgb Conc 33.3 g/dL (32-36); Mean Corpuscular Hgb 31.2 pg (27.0-32.0); Mean Corpuscular Volume 93.9 fL (80-94); Mean Platelet Vol. 8.9 fl (6.2-12.0); Monocyte# 0.71 X10^3/uL; Monocyte% 11.3 % (0-10); NRBC Flagged by Analyzer 0 % (0-5); Neutrophil % 42.9 % (47-70); Platelet Count 555 K/mm3 (150-450); RBC Distribution Width CV 13.1 % (11.6-14.6); RBC Distribution Width SD 45.4 fl (35.1-43.9); Red Blood Count 4.61 M/mm3 (4.6-6.2); White Blood Count 6.3 K/mm3 (4.4-11.0)
[2024-04-26 16:13] LABS: Vitamin B12 940 pg/mL (211-911); Vitamin D,25 Hydroxy 45.9 ng/mL
[2024-04-26 16:26] LABS: ALB/GLOB Ratio 1.2 RATIO (0.9-2.4); AST(SGOT) 24 U/L (15-37); Alanine Aminotransfer ALT/SGPT 25 U/L (16-61); Alkaline Phosphatase 65 U/L (45-117); Anion Gap 7 (5-15); BUN 13 mg/dL (7-18); Calcium,Total 9.2 mg/dL (8.5-10.1); Chloride 106 mmol/L (98-107); Cholesterol 139 mg/dL (200); Creatinine, Serum 0.72 mg/dL (0.70-1.30); EST Glomerular Filtration Rate 130 mL/min (>60); Est Glom Filt Rate - Afr Amer 158 mL/min (>60); Globulin 3.4 g/dL (2.2-4.2); Glucose 89 mg/dL (74-106); High Density Lipoprotein 65 mg/dL; Magnesium 2.1 mg/dL (1.6-2.6); PSA,Total - Annual Screen 2.04 ng/mL (0.00-4.00); Potassium 3.4 mmol/L (3.5-5.1); Protein, Total 7.4 g/dL (6.4-8.2); Sodium Level 140 mmol/L (136-145); Triglycerides 48 mg/dL; Very Low Density Lipoprotein 10 mg/dL (5-40)
[2024-05-02 10:07] LABS: Testosterone, % Free 1.98 % (1.50-4.20); Testosterone, Free 9.64 ng/dL (5.00-21.00); Testosterone, Total 487 ng/dL (264-916)
== END | disposition home or self-care (01) ==
LOC: LAB 15:15
PROVIDERS: PCP Internal Medicine; Referring Provider Internal Medicine; Visit Provider Internal Medicine
DX: R79.89 Other specified abnormal findings of blood chemistry (principal); F19.10 Other psychoactive substance abuse, uncomplicated; F10.939 Alcohol use, unspecified with withdrawal, unspecified; F10.10 Alcohol abuse, uncomplicated; E55.9 Vitamin D deficiency, unspecified; E53.8 Deficiency of other specified B group vitamins; Z13.220 Encounter for screening for lipoid disorders; Z12.5 Encounter for screening for malignant neoplasm of prostate
CPT/HCPCS: 36415; 80053; 80061; 82306; 82607; 83735; 84153; 84402; 84403; 84443; 85025; G0103

== ENCOUNTER 2024-08-30 13:42 | Emergency (ER) | payer BC, SELFPAY ==
[2024-08-30 13:43] VITALS: BP 143/100; PULSE 89; RESP 15; TEMP 35.9; O2SAT 97; BMI 23.8
--- NOTE | 2024-08-30 13:48 | EX.ED.UPPERE ---
HPI History of Present Illness Chief Complaint: Upper Extremity Injury Detail of Chief Complaint: Injury right hand due to blunt trauma Occured/Mechanism Mechanism/Context: Yes blunt trauma Comment: Patient struck a wall yesterday with a clenched fist. 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 He struck a wall. He presents because of pain that he localizes over the fifth metacarpal. He denies prior injury. He denies paresthesia, anesthesia medics. He is on no antithrombotic or anticoagulant. He does take a multivitamin. He denies elbow pain or shoulder pain. PFSH PFSH Medical History Erectile dysfunction Thrombocytosis Acute URI Drug abuse History of drug abuse History of fracture of nasal bone History of arm fracture Hepatitis A History of gastric ulcer Anxiety and depression Drug abuse Alcohol abuse Home Medications ?Medication ?Instructions ?Recorded ?Last Taken ?Type multivitamin 1 tab PO DAILY supplement #30 tabs 01/22/24 Unknown Rx escitalopram oxalate 10 mg tablet 10 mg PO DAILY #30 tabs 04/14/24 Unknown Rx (Lexapro) Allergy/AdvReac Type Severity Reaction Status Date / Time bupropion (From Wellbutrin) AdvReac Severe suicidal Verified 08/30/24 13:43 Family History Father Alcoholism Anxiety Depression Mental disorder Mother Anxiety Depression Mental disorder Methamphetamine abuse Surgical History History of wisdom tooth extraction Social History adopted: Yes household members: spouse and family Smoking Status: Current every day smoker tobacco type: e-cigarettes Electronic Cigarette Use: with nicotine how long ago did patient quit smoking: Former cig tobacco quit 3 yrs prior 1 ppd since teen->vaping. alcohol intake: former substance use type: marijuana what type of physical activity do you participate in: walking frequency: 3-4 times per week ROS ROS ED Constitutional Constitutional ED: Denies chills, fever(s), subjective, sweats or weight loss Cardiovascular Cardiovascular: Denies chest pain or palpitations Respiratory/Chest Respiratory/Chest: Denies cough, dyspnea or dyspnea on exertion Gastrointestinal Gastrointestinal: Denies nausea or vomiting Musculoskeletal Musculoskeletal: Reports other Details: Pain dorsal ulnar side of right hand Integumentary Reports Abrasions and other Details: Abrasion right long finger over the PIP joint. Hematologic/Lymphatic Hematologic/Lymphatic: Denies easy bleeding or easy bruising EXAM Physical Exam Const Vital Signs: 08/30/24 13:43 Temperature 96.6 F L Temperature Source Temporal Pulse Rate 89 Respiratory Rate 15 Blood Pressure 143/100 H Blood Pressure Mean 114 Pulse Ox 97 Oxygen Delivery Method Room Air Positive well nourished and well developed General Appearance ED: well developed; Negative for cyanotic, diaphoretic or NAD HEENT Reports moist mucous membranes normocephalic and atraumatic Eyes PERRL and EOMs intact bilaterally Resp normal respiratory effort Cardio regular rate and regular rhythm Extremity Negative for normal to inspection Extremity Narrative: There is swelling of the right hand. There is pain ovation over the MCP joint of the little finger. The extensor minimized tendon is functionally intact. The flexor digitorum superficialis and flexor digitorum profundus are intact. General Extremety ED: Yes other findings General Extremity: other findings Neuro oriented x3, CN's II-XII intact bilaterally, moves all extremities, no focal motor deficits and No no sensory deficits noted Neuro Narrative: Sensory deficits noted under the extremity portion of the EMR Sensorium / Orientation: alert Psych mental status grossly normal Skin Skin Narrative: Bruising noted over the dorsal ulnar side of the right hand MDM MDM MDM Narrative Medical decision making narrative: X-ray was obtained to determine if this is a contusion versus a fracture. There was no rotational malalignment noted on exam. Radiography Chest X-Ray - ED: Read by ED Physician (Three-view x-ray of the right hand was obtained. Patient has a nondisplaced fracture consistent with a boxer's fracture of the fifth metacarpal bone. There is slight angulation. This is acceptable. Patient will be placed in a ulnar gutter splint and referred to) Treatment and Re-Evaluation Narrative: Since no one is on for orthopedics patient was referred to Dr. Miguel Perea for hand. Patient did decline pain medicine since he has a history of drug abuse. Procedures Upper Extremity Splints Upper Extremity Splint: Plaster and Ulnar gutter Splint Fabrication: Fabricated Location: Right Discharge Plan Triage Chief Complaint: Upper Extremity Injury ED Provider: Diaz Powers Dx/Rx/DC Orders Clinical Impression: Closed fracture of fifth metacarpal bone of right hand Instructions: ED Boxer Fracture Prescriptions: No Action escitalopram oxalate [Lexapro] 10 mg tablet 10 mg PO DAILY Qty: 30 2RF multivitamin Tablet 1 tab PO DAILY Qty: 30 0RF Stand Alone Forms: Work Status Form Primary Care Provider: Adriana Harrell Referrals: Adriana Harrell MD [Primary Care Provider] - Miguel Perea MD [Med Staff - Active Staff] - 5-7 Days Activity Restrictions/Additional Instructions: 1. Elevate hand. My definition of elevation is your hand above your nose 2. Apply ice 6-8 times a day 3. Keep splint absolutely clean and dry Print Language: Bulgarian Disposition Disposition: Home, Self Care
--- NOTE | 2024-08-30 14:05 | RAD_ITS ---
STUDY: X-RAY - RIGHT HAND REASON FOR EXAM: Male, 34 years old. Injury/Pain following punching the wall. TECHNIQUE: 3 view(s) of the hand. COMPARISON: None. FINDINGS: Normal radiocarpal articulation. Normal distal radioulnar joint. Normal visualized carpal bones. Normal carpal articulations Normal carpometacarpal articulation of the thumb. Normal second through fifth carpometacarpal joints. Nondisplaced transverse fracture of the distal neck of the fifth metacarpal with overlying soft tissue swelling and mild dorsal angulation. This is in keeping with boxer fracture. Normal metacarpophalangeal joint of the thumb. Normal interphalangeal joint of the thumb. Normal proximal and distal phalanges of the thumb. Normal metacarpophalangeal joints of the second through fifth fingers. Normal proximal and distal interphalangeal joints of the second through fifth fingers. Normal phalanges of the second through fifth fingers. Soft tissue swelling. RAD/Hand Min 3 Views IMPRESSION: Findings in keeping with a nondisplaced boxer''s fracture of the distal fifth metacarpal with overlying soft tissue swelling. Electronically Signed: Jesus Gamez MD at 14:27 EST ,
[2024-08-30 16:17] VITALS: BP 140/97; PULSE 78; RESP 19; TEMP 36.8; O2SAT 97
== END 2024-08-30 16:50 | disposition home or self-care (01) ==
PROVIDERS: Emergency Provider Emergency Medicine; PCP Internal Medicine; Visit Provider Emergency Medicine
DX: S62.366A Nondisplaced fracture of neck of fifth metacarpal bone, right hand, initial encounter for closed fracture (principal); Z87.891 Personal history of nicotine dependence; W22.01XA Walked into wall, initial encounter
CPT/HCPCS: 29125; 73130; 99282

== ENCOUNTER 2024-08-31 22:08 | Inpatient (IN) | payer BC, SELFPAY ==
[2024-08-31 22:09] VITALS: BP 152/103; PULSE 104; RESP 16; TEMP 36.7; O2SAT 99; BMI 23.3
--- NOTE | 2024-08-31 22:24 | EDS_ITS ---
HPI History of Present Illness Chief Complaint: ETOH Intox Informant: patient and parent Narrative Narrative: Here for alcohol detox. Heavy alcohol use for the past 3 months. Drink of choice is vodka. Drinks up to 750 mL/day. He states he needs at least half the bottle daily to function. He will have withdrawal symptoms of morning nausea sweats and tremors if he does not drink. Denies any withdrawal seizures. Daily marijuana use. No other recreational drugs. Triage nurse discussed suicidal thoughts he mentions who does not have suicidal thoughts. He denies any plan. He does live with significant other who has 3 children he states his home life is good. He went through detox a few months ago and states it helped him. Note was seen yesterday after punching a wall has a right boxer's fracture with current splint. Last drink was 9:30 PM. Denies any diagnosis of cirrhosis. Prior similar symptoms: Yes PFSH PFSH Medical History Marijuana smoker Erectile dysfunction Thrombocytosis Acute URI History of drug abuse Drug abuse History of fracture of nasal bone History of arm fracture Hepatitis A History of gastric ulcer Anxiety and depression Drug abuse Alcohol abuse Home Medications ?Medication ?Instructions ?Recorded ?Last Taken ?Type NK 08/31/24 Unknown History Allergy/AdvReac Type Severity Reaction Status Date / Time bupropion (From Wellbutrin) AdvReac Severe suicidal Verified 08/31/24 22:08 Family History Father Alcoholism Anxiety Depression Mental disorder Mother Anxiety Depression Mental disorder Methamphetamine abuse Surgical History History of wisdom tooth extraction Social History adopted: Yes household members: spouse and family Smoking Status: Current every day smoker tobacco type: e-cigarettes Electronic Cigarette Use: with nicotine how long ago did patient quit smoking: Former cig tobacco quit 3 yrs prior 1 ppd since teen->vaping. alcohol intake: former substance use type: marijuana what type of physical activity do you participate in: walking frequency: 3-4 times per week ROS ROS ED Constitutional Constitutional ED: Denies chills, fever(s) or sweats Eyes Eyes: Denies change in vision ENT ENT ED: Denies dysphagia or sore throat Cardiovascular Cardiovascular: Denies chest pain, leg edema, palpitations or racing heartbeat Respiratory/Chest Respiratory/Chest: Denies cough, dyspnea or dyspnea on exertion Gastrointestinal Gastrointestinal: Denies abdominal pain, diarrhea, nausea or vomiting Genitourinary Genitourinary ED: Denies dysuria, hematuria or urinary frequency Musculoskeletal Musculoskeletal: Denies back pain, extremity pain or neck pain Integumentary Denies rash or wounds Neurologic Neurologic: Denies headache(s), paresthesias or weakness Psychiatric Psychiatric: Reports suicidal thoughts EXAM Physical Exam Const Vital Signs: 08/31/24 22:09 08/31/24 22:54 08/31/24 22:54 Temperature 98.1 F 98.1 F 98.1 F Temperature Source Oral Oral Pulse Rate 104 H 90 90 Respiratory Rate 16 16 16 Blood Pressure 152/103 H 153/90 H 152/90 H Blood Pressure Mean 119 111 110 Blood Pressure Source Monitor Blood Pressure Position Semi-Fowlers Blood Pressure Location Right Arm Pulse Ox 99 96 96 Oxygen Delivery Method Room Air Room Air Positive well nourished and well developed Constitutional Narrative: There is cooperative nontoxic there is some slurring of words. General Appearance ED: well developed and NAD HEENT Reports moist mucous membranes normocephalic and atraumatic Eyes EOMs intact bilaterally and conjunctivae normal General Eye ED: Yes normal appearance of both eyes Neck no lymphadenopathy and supple General: Negative for tenderness Chest Wall Chest: Negative for tenderness Resp normal respiratory effort and normal air movement Effort and Inspection: symmetric chest movement; Negative for respiratory distress Cardio regular rhythm and no murmurs Rate: tachycardic Peripheral Pulses: pulses 2+ throughout GI normal to inspection, nondistended, normoactive bowel sounds and non-tender Palpation: Negative for guarding or rebound tenderness present Extremity Extremity Narrative: Right upper extremity with ulnar gutter splint intact. General Extremety ED: Yes tenderness; Negative for edema General Extremity: Negative for edema Neuro oriented x3 and no sensory deficits noted Sensorium / Orientation: awake and alert Skin no rashes or lesions noted and no wounds MDM MDM MDM Narrative Medical decision making narrative: Interventions / MDM: Differential diagnosis: Alcohol dependence, alcohol withdrawal, marijuana dependence Diagnosis considered but do not suspect: N/A My EKG interpretation: N/A Imaging independently reviewed and interpreted by myself: N/A External documents reviewed: N/A Test considered but not ordered:N/A ED course: Nontoxic last drink an hour ago. No history of withdrawal seizures. Will obtain medical labs talk screen with alcohol levels. Will discuss with hospitalist service for admission. Labs are stable. Toxicology positive for THC. Alcohol 423. Re-evaluation: stable Disposition discussed with patient/family/significant other: Patient Case discussed with consulting clinician: Hospitalist This note was generated with [employer] dictation software. It may contain incorrect words, spelling, and punctuation that were not noted in checking the note before signing. Lab Data Attestation: I reviewed the patient's lab results. Labs: Laboratory Results - last 24 hr 08/31/24 08/31/24 22:40 22:51 WBC 10.0 RBC 5.36 Hgb 17.2 H Hct 48.8 MCV 91.0 MCH 32.1 H MCHC 35.2 RDW Std Deviation 46.8 H RDW Coeff of [place] 13.7 Plt Count 342 MPV 8.8 Immature Gran % (Auto) 0.200 Neut % (Auto) 59.3 Lymph % (Auto) 29.6 [place] % (Auto) 8.6 Eos % (Auto) 1.2 Baso % (Auto) 1.1 H Absolute Neuts (auto) 5.9 Absolute Lymphs (auto) 2.95 Nucleated RBC % 0 Sodium 141 Potassium 3.5 Chloride 104 Carbon Dioxide 31.0 Anion Gap 6 BUN 12 Creatinine 0.74 Estim Creat Clear Calc 142.49 Est GFR (MDRD) Af Amer 154 Est GFR (MDRD) Non-Af 128 BUN/Creatinine Ratio 16.3 Glucose 110 H Calcium 9.4 Total Bilirubin 0.60 AST 52 H ALT 58 Alkaline Phosphatase 95 Total Protein 8.1 Albumin 4.4 Globulin 3.7 Albumin/Globulin Ratio 1.2 Urine Opiates Screen NEGATIVE Urine Methadone Screen NEGATIVE Ur Barbiturates Screen NEGATIVE Ur Phencyclidine Scrn NEGATIVE Ur Amphetamines Screen NEGATIVE MDMA (Ecstasy) Screen NEGATIVE U Benzodiazepines Scrn NEGATIVE Urine Cocaine Screen NEGATIVE U Cannabinoids Screen POSITIVE H Ur Drug Screen Comment Ethyl Alcohol 423.0 H* Discharge Plan Dx/Rx/DC Orders Clinical Impression: Alcohol dependence, Alcohol withdrawal, Cannabis dependence Disposition Disposition: Acute Care Hospital [facility] Discharge Date/Time: 09/01/24 00:27
[2024-08-31 22:54] VITALS: BP 152/90; BP 153/90; PULSE 90; RESP 16; TEMP 36.7; O2SAT 96
[2024-08-31 23:02] LABS: Absolute Lymphocyte Count 2.95 X10^3/uL (0.83-4.51); Absolute Neutrophil Count 5.9 X10^3/uL (2.0-7.7); Basophil# 0.11 X10^3/uL; Basophil% 1.1 % (0-1); Eosinophil# 0.12 X10^3/uL; Eosinophils% 1.2 % (0-5); Hematocrit 48.8 % (40-54); Hemoglobin 17.2 g/dL (13.0-16.5); Lymphocyte # 2.95 X10^3/ul (0.83-4.51); Lymphocyte % 29.6 % (19-41); Mean Corp Hgb Conc 35.2 g/dL (32-36); Mean Corpuscular Hgb 32.1 pg (27.0-32.0); Mean Platelet Vol. 8.8 fl (6.2-12.0); Monocyte# 0.86 X10^3/uL; Monocyte% 8.6 % (0-10); NRBC Flagged by Analyzer 0 % (0-5); Neutrophil # 5.92 X10^3/uL (2.7-7.7); Neutrophil % 59.3 % (47-70); Platelet Count 342 K/mm3 (150-450); RBC Distribution Width CV 13.7 % (11.6-14.6); RBC Distribution Width SD 46.8 fl (35.1-43.9); Red Blood Count 5.36 M/mm3 (4.6-6.2)
[2024-08-31 23:27] LABS: ALB/GLOB Ratio 1.2 RATIO (0.9-2.4); AST(SGOT) 52 U/L (15-37); Alanine Aminotransfer ALT/SGPT 58 U/L (16-61); Albumin, Serum 4.4 g/dL (3.2-5.0); Alkaline Phosphatase 95 U/L (45-117); Anion Gap 6 (5-15); BUN 12 mg/dL (7-18); BUN/Creat Ratio 16.3 RATIO (10-20); Calcium,Total 9.4 mg/dL (8.5-10.1); Chloride 104 mmol/L (98-107); Creatinine, Serum 0.74 mg/dL (0.70-1.30); EST Glomerular Filtration Rate 128 mL/min (>60); Est Glom Filt Rate - Afr Amer 154 mL/min (>60); Estimated Creatinine Clearance 142.49 ml/min; Globulin 3.7 g/dL (2.2-4.2); Glucose 110 mg/dL (74-106); Potassium 3.5 mmol/L (3.5-5.1); Protein, Total 8.1 g/dL (6.4-8.2); Sodium Level 141 mmol/L (136-145)
--- NOTE | 2024-08-31 23:31 | PCM.HP.STD ---
HPI - General General Date of Admission: 08/31/24 HPI Narrative MARYURI DALE, is a 34 M who presents to the hospital requesting detox from alcohol. He was admitted here at the end of March and had been sober for about 3 months and then states that he forgot what it was like to be drunk and so he thought that he was able to have a beer or drink and then he slowly started heavily drinking again. He drinks about 750 mL/day of vodka with his last use being around 9:30 PM.. Of note he was seen in the ER the other day for a boxer's fracture after punching a wall, his right hand is currently in a splint. PFSH Medical History Marijuana smoker Erectile dysfunction Thrombocytosis Acute URI History of drug abuse Drug abuse History of fracture of nasal bone History of arm fracture Hepatitis A History of gastric ulcer Anxiety and depression Drug abuse Alcohol abuse Home Medications ?Medication ?Instructions ?Recorded ?Last Taken ?Type NK 08/31/24 Unknown History Allergy/AdvReac Type Severity Reaction Status Date / Time bupropion (From Wellbutrin) AdvReac Severe suicidal Verified 08/31/24 22:08 Family History Father Alcoholism Anxiety Depression Mental disorder Mother Anxiety Depression Mental disorder Methamphetamine abuse Surgical History History of wisdom tooth extraction Social History adopted: Yes household members: spouse and family Smoking Status: Current every day smoker tobacco type: e-cigarettes Electronic Cigarette Use: with nicotine how long ago did patient quit smoking: Former cig tobacco quit 3 yrs prior 1 ppd since teen->vaping. alcohol intake: former substance use type: marijuana what type of physical activity do you participate in: walking frequency: 3-4 times per week ROS Constitutional Constitutional: Denies chills, fatigue, fever(s) or malaise Eyes Eyes: Denies blurry vision ENT HEENT: Denies headache(s) or nasal discharge Cardiovascular Cardiovascular: Denies chest pain, dyspnea on exertion or syncope Respiratory/Chest Respiratory/Chest: Denies cough, shortness of breath at rest or shortness of breath with exertion Gastrointestinal Gastrointestinal: Denies constipation, diarrhea, nausea or vomiting Genitourinary Genitourinary: Denies dysuria Neurologic Neurologic: Denies focal weakness, numbness or tremor(s) Psychiatric Psychiatric: Reports anxiety; Denies depression Vital Signs Vital Signs Vital Signs: 08/31/24 22:09 08/31/24 22:54 08/31/24 22:54 Temperature 98.1 F 98.1 F 98.1 F Temperature Source Oral Oral Pulse Rate 104 H 90 90 Respiratory Rate 16 16 16 Blood Pressure 152/103 H 153/90 H 152/90 H Blood Pressure Mean 119 111 110 Blood Pressure Source Monitor Blood Pressure Position Semi-Fowlers Blood Pressure Location Right Arm Pulse Ox 99 96 96 Oxygen Delivery Method Room Air Room Air Weight Weight: 162 lb 8 oz Body Mass Index (BMI) 23.3 Physical Exam Narrative General: Alert, Oriented x3, Cooperative, No apparent distress HEENT: Atraumatic, PERRLA, EOMI, Normocephalic Oral: Moist Mucosa Neck: Supple, No JVD Lungs: Clear to auscultation, Normal air movement, No rhonchi, No wheeze, No rales Cardiovascular: Regular rate, Regular Rhythm, Normal S1, Normal S2, No murmurs Abdomen: Soft, Non Tender, Non-Distended, No Hepato-splenomegaly Extremities: No edema, Capillary Refill Less than 3 Seconds Skin: No rashes, No breakdown Musculoskeletal: No Tenderness to Palpation of Joints or Extremities Neurological: No focal neurological deficits, Motor Exam 5/5 strength throughout, Sensory exam intact to light touch and pain Psych/Mental Status: Normal Affect, Appropriate Results Lab / Micro Data 08/31/24 22:51 08/31/24 22:51 Labs: Laboratory Results - last 24 hr 08/31/24 22:40: Ur Drug Screen Comment 08/31/24 22:51: WBC 10.0, RBC 5.36, Hgb 17.2 H, Hct 48.8, MCV 91.0, MCH 32.1 H, MCHC 35.2, RDW Std Deviation 46.8 H, RDW Coeff of Puma 13.7, Plt Count 342, MPV 8.8, Immature Gran % (Auto) 0.200, Neut % (Auto) 59.3, Lymph % (Auto) 29.6, [place] % (Auto) 8.6, Eos % (Auto) 1.2, Baso % (Auto) 1.1 H, Absolute Neuts (auto) 5.9, Absolute Lymphs (auto) 2.95, Nucleated RBC % 0, Sodium 141, Potassium 3.5, Chloride 104, Carbon Dioxide 31.0, Anion Gap 6, BUN 12, Creatinine 0.74, Estim Creat Clear Calc 142.49, Est GFR (MDRD) Af Amer 154, Est GFR (MDRD) Non-Af 128, BUN/Creatinine Ratio 16.3, Glucose 110 H, Calcium 9.4, Total Bilirubin 0.60, AST 52 H, ALT 58, Alkaline Phosphatase 95, Total Protein 8.1, Albumin 4.4, Globulin 3.7, Albumin/Globulin Ratio 1.2 Assessment & Plan Assessment/Plan (1) Alcohol dependence: PLAN: Plan 1. Alcohol abuse requesting detox/anxiety/depression/tobacco abuse ? Continue with the alcohol withdrawal protocol ? Discussed the possibility of inpatient rehab on discharge ? Will discuss with 180 and develop a discharge plan ? Discussed cessation, continue nicotine patch ? He stopped taking his antidepressant, per chart review it appears that he is to be Lexapro 10 mg daily may benefit from restarting this if he is interested ? UDS positive for cannabis as well DVT: Ambulation Charges/Coding Visit Charges Inpatient E&M: 26205 Init Hosp L2
[2024-08-31 23:38] LABS: Amphetamine Urine VISTA NEGATIVE (<1000 ng/mL); Barbiturate Urine VISTA NEGATIVE (< 200 ng/mL); Benzodiazepine Urine VISTA NEGATIVE (< 200 ng/mL); Cocaine Urine VISTA NEGATIVE (< 300 ng/mL); Ecstacy Urine VISTA NEGATIVE (< 500 ng/mL); Methadone Urine VISTA NEGATIVE (< 300 ng/mL); PCP Urine VISTA NEGATIVE (< 25 ng/mL); THC Urine VISTA POSITIVE (< 50 ng/mL); Vista UDS pH Range 6
[2024-09-01] VITALS (8 sets, daily range): BP systolic 106–148; BP diastolic 65–103; PULSE 73–101; RESP 14–18; TEMP 36.6–36.8; O2SAT 94–99; BMI 23.2
[2024-09-01] MEDS: Phenobarbital 32.4 MG Tablet PO ×6 (00:49→20:09)
[2024-09-01] MEDS: Gabapentin 300 MG Capsule PO ×2 (00:49→16:10)
[2024-09-01] MEDS: hydrOXYzine PAM 25 MG Capsule 50 MG PO ×3 (00:49→20:09)
[2024-09-01] MEDS: Ondansetron 8 MG Tablet PO (00:49)
[2024-09-01] MEDS: traZODone 100 MG Tablet PO ×2 (00:49→20:09)
[2024-09-01] MEDS: Folic Acid 1 MG Tablet PO (09:15)
[2024-09-01] MEDS: Thiamine Hydrochloride 100 MG Tablet PO (09:16)
--- NOTE | 2024-09-01 11:44 | PN.HOSP_ITS ---
Reason for Visit Reason for Visit: Diagnoses Alcohol dependence, uncomplicated (08/31/24) Subjective Subjective Saw patient at bedside this morning. Patient was fatigued appearing but otherwise sitting up comfortably in bed and in no acute distress. Stated that he felt groggy this morning but denied any withdrawal symptoms. No other acute concerns at this time. Objective Data Objective Data Vital Signs: Vital Signs Temp Pulse Resp BP Pulse Ox O2 Del Method 97.8 F 101 H 16 142/87 H 96 Room Air 09/01/24 08:02 09/01/24 08:02 09/01/24 08:02 09/01/24 08:02 09/01/24 08:02 09/01/24 08:02 Oxygen Delivery Method Room Air Weight: 73.4 kg Body Mass Index (BMI) 23.2 Lab / Micro Data 08/31/24 22:51 08/31/24 22:51 Labs: Laboratory Results - last 24 hr 08/31/24 22:40: Urine Opiates Screen NEGATIVE, Urine Methadone Screen NEGATIVE, Ur Barbiturates Screen NEGATIVE, Ur Phencyclidine Scrn NEGATIVE, Ur Amphetamines Screen NEGATIVE, MDMA (Ecstasy) Screen NEGATIVE, U Benzodiazepines Scrn NEGATIVE, Urine Cocaine Screen NEGATIVE, U Cannabinoids Screen POSITIVE H, Ur Drug Screen Comment 08/31/24 22:51: WBC 10.0, RBC 5.36, Hgb 17.2 H, Hct 48.8, MCV 91.0, MCH 32.1 H, MCHC 35.2, RDW Std Deviation 46.8 H, RDW Coeff of Puma 13.7, Plt Count 342, MPV 8.8, Immature Gran % (Auto) 0.200, Neut % (Auto) 59.3, Lymph % (Auto) 29.6, [place] % (Auto) 8.6, Eos % (Auto) 1.2, Baso % (Auto) 1.1 H, Absolute Neuts (auto) 5.9, Absolute Lymphs (auto) 2.95, Nucleated RBC % 0, Sodium 141, Potassium 3.5, Chloride 104, Carbon Dioxide 31.0, Anion Gap 6, BUN 12, Creatinine 0.74, Estim Creat Clear Calc 142.49, Est GFR (MDRD) Af Amer 154, Est GFR (MDRD) Non-Af 128, BUN/Creatinine Ratio 16.3, Glucose 110 H, Calcium 9.4, Total Bilirubin 0.60, AST 52 H, ALT 58, Alkaline Phosphatase 95, Total Protein 8.1, Albumin 4.4, Globulin 3.7, Albumin/Globulin Ratio 1.2, Ethyl Alcohol 423.0 H* Physical Exam Const alert, oriented x3, no apparent distress and average body habitus Constitutional Narrative: Younger male, fatigued and somewhat disheveled appearing, otherwise laying back comfortably in bed, answering questions appropriately, in no acute distress. General Appearance: cooperative and comfortable HEENT normocephalic, head/scalp atraumatic, hearing grossly normal bilaterally, nasal mucous membranes and turbinates normal and moist oral mucous membranes Eyes PERRL, EOMs intact bilaterally and conjunctivae normal Neck full ROM Chest inspection of chest normal Resp normal respiratory effort, normal air movement, no use of accessory muscles and clear to auscultation bilaterally Cardio regular rate, regular rhythm, no murmurs and peripheral pulses 2+ throughout GI normal to inspection, nondistended, normoactive bowel sounds, soft to palpation, non-tender and non-distended Back/Spine normal ROM Extremity normal to inspection, full ROM and no pedal edema Skin no rashes or lesions noted Neuro moves all extremities Speech: speech normal Psych mental status grossly normal Psych Narrative: Flat affect. Assessment & Plan Assessment/Plan (1) Alcohol dependence: (2) Desire for detoxification: PLAN: Plan Patient is a 34-year-old male who presented [facility] ED on 08/31/2024 requesting alcohol detox. 1. Alcohol abuse with desire for detoxification ? Addiction medicine following. Alcohol level 423 on admit. Has gone through inpatient detox before. Treating with phenobarbital taper with as needed medications per alcohol withdrawal order set and patient tolerating without issue. Planning for outpatient treatment services on discharge. 2. Tobacco use, cannabis use ? UDS positive for cannabinoids. Nicotine patch on per patient request. Discussed cessation on discharge. 3. Anxiety/depression ? Patient reported that he stopped taking his antidepressant and on chart review it appears he was on Lexapro 10 mg daily. Will not restart here but patient may benefit from restarting this on discharge. DVT prophylaxis: Low risk, ambulate CODE STATUS: Full code, verified Corrected disposition: Home, 2 to 3 days Total clinical time spent by myself addressing the patient's medical issues, reviewing all the data, and collaborating with patient's care team: 25 minutes. Charges/Coding Visit Charges Inpatient E&M: 62477 Subs Hosp L1
[2024-09-01] MEDS: Polyethylene Glycol 3350 17 GM PACKET PO (13:08)
--- NOTE | 2024-09-01 15:12 | ADDICTION ---
This health underwriter met with PT to conduct ASAM, MSE, AUDIT, DUDIT assessments and to plan for d/c. PT A+Ox4 and participated actively. All assessments completed and placed in PT's chart. PT plans to f/u with follow-up treatment services, however he wanted to discuss it with his family upon d/c. This worker offered resources in the area and will follow up with him tomorrow. PT did not indicate a need for transportation post d/c from [facility].
[2024-09-02 00:50] VITALS: BP 131/86; PULSE 84; RESP 16; TEMP 36.8; O2SAT 98
[2024-09-02] MEDS: Phenobarbital 32.4 MG Tablet PO ×6 (00:51→21:04)
[2024-09-02 04:02] VITALS: BP 141/105; PULSE 74; RESP 16; TEMP 36.5; O2SAT 96
[2024-09-02 08:25] VITALS: BP 139/91; PULSE 55; RESP 11; TEMP 36.4; O2SAT 98
[2024-09-02] MEDS: Thiamine Hydrochloride 100 MG Tablet PO (08:28)
[2024-09-02] MEDS: Folic Acid 1 MG Tablet PO (08:28)
--- NOTE | 2024-09-02 11:15 | PCM.PN.HOSP ---
Reason for Visit Reason for Visit: Diagnoses Alcohol dependence, uncomplicated (08/31/24) Subjective Subjective Saw patient at bedside this morning. Patient was sleeping on my arrival to the room. Remained groggy during the encounter. Denied any withdrawal symptoms. No other new concerns morning. Objective Data Objective Data Vital Signs: Vital Signs Temp Pulse Resp BP Pulse Ox O2 Del Method 97.6 F L 55 L 11 L 139/91 H 98 Room Air 09/02/24 08:25 09/02/24 08:25 09/02/24 08:25 09/02/24 08:25 09/02/24 08:25 09/02/24 08:25 Oxygen Delivery Method Room Air Weight: 73.4 kg Body Mass Index (BMI) 23.2 Lab / Micro Data 08/31/24 22:51 08/31/24 22:51 Physical Exam Const alert, oriented x3, no apparent distress and average body habitus Constitutional Narrative: Younger male, fatigued and somewhat disheveled appearing, otherwise laying back comfortably in bed, answering questions appropriately, in no acute distress. Stable. General Appearance: cooperative and comfortable HEENT normocephalic, head/scalp atraumatic, hearing grossly normal bilaterally, nasal mucous membranes and turbinates normal and moist oral mucous membranes Eyes PERRL, EOMs intact bilaterally and conjunctivae normal Neck full ROM Chest inspection of chest normal Resp normal respiratory effort, normal air movement, no use of accessory muscles and clear to auscultation bilaterally Cardio regular rate, regular rhythm, no murmurs and peripheral pulses 2+ throughout GI normal to inspection, nondistended, normoactive bowel sounds, soft to palpation, non-tender and non-distended Back/Spine normal ROM Extremity normal to inspection, full ROM and no pedal edema Skin no rashes or lesions noted Neuro moves all extremities Speech: speech normal Psych mental status grossly normal Psych Narrative: Flat affect. Assessment & Plan Assessment/Plan (1) Alcohol dependence: (2) Desire for detoxification: PLAN: Plan Patient is a 34-year-old male who presented [facility] ED on 08/31/2024 requesting alcohol detox. 1. Alcohol abuse with desire for detoxification ? Addiction medicine following. Alcohol level 423 on admit. Has gone through inpatient detox before. Treating with phenobarbital taper with as needed medications per alcohol withdrawal order set and patient tolerating without issue. Planning for outpatient treatment services on discharge. Likely discharge in the next 1 to 2 days. 2. Tobacco use, cannabis use ? UDS positive for cannabinoids. Nicotine patch on per patient request. Discussed cessation on discharge. 3. Anxiety/depression ? Patient reported that he stopped taking his antidepressant and on chart review it appears he was on Lexapro 10 mg daily. Will not restart here but patient may benefit from restarting this on discharge. DVT prophylaxis: Low risk, ambulate CODE STATUS: Full code, verified Corrected disposition: Home, 1 to 2 days Total clinical time spent by myself addressing the patient's medical issues, reviewing all the data, and collaborating with patient's care team: 25 minutes. Charges/Coding Visit Charges Inpatient E&M: 79063 Subs Hosp L1
[2024-09-02 12:00] VITALS: BP 136/92; PULSE 86; RESP 12; TEMP 36.7; O2SAT 98
[2024-09-02 20:00] VITALS: BP 139/88; PULSE 70; RESP 16; TEMP 37.1; O2SAT 99
[2024-09-02] MEDS: traZODone 100 MG Tablet PO (21:03)
[2024-09-02] MEDS: hydrOXYzine PAM 25 MG Capsule 50 MG PO (21:03)
[2024-09-03 00:46] VITALS: BP 131/82; PULSE 67; RESP 16; TEMP 36.9; O2SAT 94
[2024-09-03] MEDS: Phenobarbital 32.4 MG Tablet PO ×5 (00:48→20:52)
[2024-09-03 05:06] VITALS: BP 133/90; PULSE 67; RESP 16; TEMP 36.9; O2SAT 94
[2024-09-03 08:37] VITALS: BP 142/87; PULSE 66; RESP 11; TEMP 36.3; O2SAT 100
[2024-09-03] MEDS: Thiamine Hydrochloride 100 MG Tablet PO (08:40)
[2024-09-03] MEDS: Folic Acid 1 MG Tablet PO (08:40)
--- NOTE | 2024-09-03 10:28 | PCM.PN.HOSP ---
Reason for Visit Reason for Visit: Diagnoses Alcohol dependence, uncomplicated (08/31/24) Subjective Subjective Saw patient at bedside this morning. Patient was more alert appearing this morning than previous days. Stated he was feeling improved and his appetite had come back. Denied any withdrawal symptoms this morning. No other new concerns. Objective Data Objective Data Vital Signs: Vital Signs Temp Pulse Resp BP Pulse Ox O2 Del Method 97.3 F L 66 11 L 142/87 H 100 Room Air 09/03/24 08:37 09/03/24 08:37 09/03/24 08:37 09/03/24 08:37 09/03/24 08:37 09/03/24 08:37 Oxygen Delivery Method Room Air Weight: 73.4 kg Body Mass Index (BMI) 23.2 Lab / Micro Data 08/31/24 22:51 08/31/24 22:51 Physical Exam Const alert, oriented x3, no apparent distress and average body habitus Constitutional Narrative: Younger male, appears improved this morning with good energy level, sitting up comfortably in bed, answering questions appropriately, in no acute distress. Stable. General Appearance: cooperative and comfortable HEENT normocephalic, head/scalp atraumatic, hearing grossly normal bilaterally, nasal mucous membranes and turbinates normal and moist oral mucous membranes Eyes PERRL, EOMs intact bilaterally and conjunctivae normal Neck full ROM Chest inspection of chest normal Resp normal respiratory effort, normal air movement, no use of accessory muscles and clear to auscultation bilaterally Cardio regular rate, regular rhythm, no murmurs and peripheral pulses 2+ throughout GI normal to inspection, nondistended, normoactive bowel sounds, soft to palpation, non-tender and non-distended Back/Spine normal ROM Extremity normal to inspection, full ROM and no pedal edema Skin no rashes or lesions noted Neuro moves all extremities Speech: speech normal Psych mental status grossly normal Assessment & Plan Assessment/Plan (1) Alcohol dependence: (2) Desire for detoxification: PLAN: Plan Patient is a 34-year-old male who presented [facility] ED on 08/31/2024 requesting alcohol detox. 1. Alcohol abuse with desire for detoxification ? Addiction medicine following. Alcohol level 423 on admit. Has gone through inpatient detox before. Treating with phenobarbital taper with as needed medications per alcohol withdrawal order set and patient tolerating without issue. Planning for outpatient treatment services on discharge. Tentatively planning for discharge home tomorrow and patient was agreeable with this. 2. Tobacco use, cannabis use ? UDS positive for cannabinoids. Nicotine patch on per patient request. Discussed cessation on discharge. 3. Anxiety/depression ? Patient reported that he stopped taking his antidepressant and on chart review it appears he was on Lexapro 10 mg daily. Will not restart here but patient may benefit from restarting this on discharge. DVT prophylaxis: Low risk, ambulate CODE STATUS: Full code, verified Corrected disposition: Home, 1 to 2 days Total clinical time spent by myself addressing the patient's medical issues, reviewing all the data, and collaborating with patient's care team: 25 minutes. Charges/Coding Visit Charges Inpatient E&M: 26992 Subs Hosp L1
[2024-09-03 14:00] VITALS: BP 137/71; PULSE 72; RESP 12; TEMP 36.2; O2SAT 99
[2024-09-03 20:51] VITALS: BP 141/92; PULSE 72; RESP 16; TEMP 36.3; O2SAT 100
[2024-09-03] MEDS: traZODone 100 MG Tablet PO (20:54)
[2024-09-03] MEDS: hydrOXYzine PAM 25 MG Capsule 50 MG PO (20:54)
[2024-09-04 03:18] VITALS: BP 127/77; PULSE 62; RESP 14; TEMP 36.5; O2SAT 100
[2024-09-04] MEDS: Phenobarbital 32.4 MG Tablet PO ×2 (03:22→10:13)
[2024-09-04] MEDS: hydrOXYzine PAM 25 MG Capsule 50 MG PO (03:29)
--- NOTE | 2024-09-04 09:41 | DCINST_ITS ---
Discharge Instructions Diet Discharge Diet: No restrictions DC O2, CPAP, BIPAP needs Home O2 Discharge instructions: No Dressing / Incision Discharge Activity: No Restrictions Follow Up Care Test Results: Test results from this visit will be discussed in further detail at your follow- up appointment, if applicable. Discharge Plan Admission Admit Date/Time: 08/31/24 23:30 Primary Reason for Your Visit: alcohol detox Attending Provider: Ismael Rubin Primary Care Provider: Adriana Harrell Consulting Providers: Bora Clemens Discharge Orders/Prescriptions Prescriptions: No Action NK Referrals / Follow Up: Adriana Harrell MD [Primary Care Provider] - Disposition Disposition (needs filled in before D/C Order can be placed): Home, Self Care
--- NOTE | 2024-09-04 09:42 | PCM.DC.SUM ---
Providers Date of Admission: 08/31/24 Date of Discharge: 09/04/24 Primary Care Physician: Dr. Adriana Harrell MD Reason For Visit: ETOH Diagnosis Discharge Diagnosis (1) Alcohol dependence: Status: Acute Code(s): F10.20 - Alcohol dependence, uncomplicated (2) Desire for detoxification: Status: Resolved Medications at Discharge Home Medications NK 08/31/24 Hospital Course Operations None Procedures None Summary of Care Provided Minutes Spent on Discharge: 25 Hospital Course: Patient is a 34-year-old male who presented [facility] ED on 08/31/2024 requesting alcohol detox. Hospital course as noted below. Patient discharged home in stable condition on 09/04. 1. Alcohol abuse with desire for detoxification ? Addiction medicine followed. Alcohol level 423 on admit. Has gone through inpatient detox before. Treated with phenobarbital taper with as needed medications per alcohol withdrawal order set and patient tolerating without issue. Discharged home on 09/04 with plan for follow-up with outpatient treatment services. 2. Tobacco use, cannabis use ? UDS positive for cannabinoids. Treated with nicotine patch while inpatient per patient request. Discussed cessation on discharge. 3. Anxiety/depression ? Patient reported that he stopped taking his antidepressant and on chart review it appears he was on Lexapro 10 mg daily. Did not restart here but noted to patient that he may benefit from restarting this on discharge. 4. Right fifth metacarpal fracture ? Patient seen in ED on 08/30 for right hand pain after punching a wall. X-ray revealed a right fifth metacarpal (boxer) fracture. Was placed in a splint in the ED and the splint was maintained during this hospitalization. Patient will follow-up with Dr. Perea in the office in the next 1-2 weeks for further management. Total clinical time spent by myself addressing the patient's medical issues, reviewing all the data, and collaborating with patient's care team: 25 minutes. Physical Exam Const alert, oriented x3, no apparent distress and average body habitus Constitutional Narrative: Younger male, appears improved this morning with good energy level, sitting up comfortably in bed, answering questions appropriately, in no acute distress. Stable. General Appearance: cooperative and comfortable HEENT normocephalic, head/scalp atraumatic, hearing grossly normal bilaterally, nasal mucous membranes and turbinates normal and moist oral mucous membranes Eyes PERRL, EOMs intact bilaterally and conjunctivae normal Neck full ROM Chest inspection of chest normal Resp normal respiratory effort, normal air movement, no use of accessory muscles and clear to auscultation bilaterally Cardio regular rate, regular rhythm, no murmurs and peripheral pulses 2+ throughout GI normal to inspection, nondistended, normoactive bowel sounds, soft to palpation, non-tender and non-distended Back/Spine normal ROM Extremity no pedal edema Extremity Narrative: Right hand with splint in place for recent fracture. Skin no rashes or lesions noted Neuro moves all extremities Speech: speech normal Psych mental status grossly normal Weight / BMI Weight Weight: 73.4 kg Body Mass Index (BMI) 23.2 ABG / Lab / Microbiology Data 08/31/24 22:51 08/31/24 22:51 D/C Instructions Discharge Diet: No restrictions DC O2, CPAP, BIPAP Needs Home O2 Discharge instructions: No Meaningful Use Info Meaningful Use Meaningful Use Diagnoses (Choose all that apply): None applicable Ischemic Stroke Statin Dosing Therapy Reference: STATIN DOSE THERAPY REFERENCE: * Patients > 75 years receive moderate or high dose statin therapy. * Patients 75 years or YOUNGER should receive HIGH intensity statin dose unless contraindicated. You will be required to document reason for non-treatment if statin daily dose does not meet guidelines. HIGH DOSE STATIN THERAPY DAILY Atorvastatin > than or = to 40 mg Rosuvastatin > than or = to 20 mg Amlodipine + Atorvastatin > than or = to 2.5/40 mg Ezetimibe + Simvastatin 10/80 mg Simvastatin 80mg Discharge Plan Admission Admit Date/Time: 08/31/24 23:30 Primary Reason for Your Visit: alcohol detox Attending Provider: Ismael Rubin Primary Care Provider: Adriana Harrell Consulting Providers: Bora Clemens Instructions Additional Instructions / Restrictions: ? Please call Dr. Perea's office this coming week to schedule a follow-up appointment for your hand fracture. Discharge Orders/Prescriptions Prescriptions: No Action NK Referrals / Follow Up: Adriana Harrell MD [Primary Care Provider] - Miguel Perea MD [Med Staff - Active Staff] - Disposition Disposition (needs filled in before D/C Order can be placed): Home, Self Care Charges/Coding Visit Charges Inpatient E&M: 07671 Disch Hosp
[2024-09-04] MEDS: Folic Acid 1 MG Tablet PO (10:14)
[2024-09-04] MEDS: Thiamine Hydrochloride 100 MG Tablet PO (10:14)
[2024-09-04 10:16] VITALS: BP 161/88; PULSE 83; RESP 16; TEMP 37; O2SAT 100
== END 2024-09-04 11:36 | disposition home or self-care (01) | DRG 897 ==
LOC: ED 22:46 → PCU 23:41
PROVIDERS: Admitting Provider Family Medicine; Emergency Provider Emergency Medicine; PCP Internal Medicine; Visit Provider Hospitalist
DX: F10.20 Alcohol dependence, uncomplicated (principal); F12.90 Cannabis use, unspecified, uncomplicated; F32.A Depression, unspecified; F41.9 Anxiety disorder, unspecified; F17.290 Nicotine dependence, other tobacco product, uncomplicated; Y90.8 Blood alcohol level of 240 mg/100 ml or more; S62.306D Unspecified fracture of fifth metacarpal bone, right hand, subsequent encounter for fracture with routine healing; W22.09XD Striking against other stationary object, subsequent encounter
CPT/HCPCS: 80053; 80307; 82077; 85025; 99283; 99406; A4216